=== PATIENT | female | born 1930 | race Caucasian/White ===

== ENCOUNTER 2018-01-11 09:09 | Observation (INO) ==
[2018-01-11] MEDS ORDERED: ONDANSETRON 4 MG/2 ML VIAL IV PRN (10:46)
[2018-01-11 11:13] LABS: Basophils # 0.1 10*3/uL (0.0-0.2); Basophils % 0.5 % (0.0-0.8); Eosinophils % 0.1 % (0.00-10.9); Hematocrit 36.4 VOL% (35.7-47.0); Hemoglobin 11.5 GM/DL (12.0-16.0); Immature Granulocytes % 1.2 %; Immature Granulocytes Absolute 0.16 #; Lymphocytes # 0.8 10*3/uL (1.4-4.0); Lymphocytes % 5.9 % (21.3-54.2); Mean Corpuscular HGB Conc 31.6 GM/DL (32-36); Mean Corpuscular Hemoglobin 31 PG (27-34); Mean Corpuscular Volume 97.8 FL (87-102); Mean Platelet Volume 9.1 FL (9.6-12.0); Monocytes # 0.7 10*3/uL (0.11-0.8); Monocytes % 5.1 % (1.7-12.7); Neutrophils # 11.5 10*3/uL (1.4-7.4); Neutrophils % 87.2 % (38.7-73.9); Platelet Count 314 T/CUMM (130-400); Red Blood Count 3.72 MC/CUMM (3.8-5.5); White Blood Count 13.2 T/CUMM (4-12)
[2018-01-11 11:35] LABS: Calcium 8.5 MG/DL (8.5-10.1); Osmolality,Calculated 275.5 MOS/KG (273-304); Potassium 4.3 MMOL/L (3.5-5.1)
[2018-01-11] MEDS: ACETAMINOPHEN 325 MG TABLET PO PRN ×2 (11:37→21:28)
[2018-01-11] MEDS: ATENOLOL 50 MG TABLET PO SCH (13:25)
[2018-01-11] MEDS: COLESTIPOL 1 GM TABLET PO SCH ×2 (16:34→20:16)
[2018-01-11] MEDS: FLUCONAZOLE 150 MG TABLET PO SCH (20:15)
[2018-01-11] MEDS: NYSTATIN POWDER 15 GM BOTTLE TOP SCH (20:15)
[2018-01-11] MEDS: AMIODARONE 200 MG TABLET PO SCH (20:16)
[2018-01-11] MEDS: sulfaSALAzine 500 MG TABLET PO SCH (20:16)
[2018-01-11] MEDS: LISINOPRIL 10 MG TABLET PO SCH (20:16)
[2018-01-11] MEDS: DOCUSATE SODIUM 100 MG CAPSULE PO SCH (20:17)
[2018-01-12 06:28] LABS: Basophils # 0.1 10*3/uL (0.0-0.2); Basophils % 0.6 % (0.0-0.8); Eosinophils % 0.3 % (0.00-10.9); Hematocrit 33.7 VOL% (35.7-47.0); Hemoglobin 10.6 GM/DL (12.0-16.0); Immature Granulocytes % 1.3 %; Immature Granulocytes Absolute 0.12 #; Lymphocytes # 0.9 10*3/uL (1.4-4.0); Lymphocytes % 10.4 % (21.3-54.2); Mean Corpuscular HGB Conc 31.5 GM/DL (32-36); Mean Corpuscular Hemoglobin 31 PG (27-34); Mean Corpuscular Volume 99.1 FL (87-102); Mean Platelet Volume 9.6 FL (9.6-12.0); Monocytes # 0.6 10*3/uL (0.11-0.8); Monocytes % 6.9 % (1.7-12.7); Neutrophils # 7.3 10*3/uL (1.4-7.4); Neutrophils % 80.5 % (38.7-73.9); Platelet Count 316 T/CUMM (130-400); Red Cell Distribution Width 15.4 % (9.3-17.3)
[2018-01-12 06:52] LABS: Calcium 8.6 MG/DL (8.5-10.1); Osmolality,Calculated 274.7 MOS/KG (273-304); Potassium 3.7 MMOL/L (3.5-5.1)
[2018-01-12] MEDS: COLESTIPOL 1 GM TABLET PO SCH ×2 (08:53→08:55)
[2018-01-12] MEDS: LISINOPRIL 10 MG TABLET PO SCH (08:53)
[2018-01-12] MEDS: FLUCONAZOLE 150 MG TABLET PO SCH (08:54)
[2018-01-12] MEDS: AMIODARONE 200 MG TABLET PO SCH (08:55)
[2018-01-12] MEDS: ATENOLOL 50 MG TABLET PO SCH (08:55)
[2018-01-12] MEDS: sulfaSALAzine 500 MG TABLET PO SCH (08:55)
[2018-01-12] MEDS: DOCUSATE SODIUM 100 MG CAPSULE PO SCH (08:55)
[2018-01-12] MEDS: NYSTATIN POWDER 15 GM BOTTLE TOP SCH (08:55)
[2018-01-12] MEDS ORDERED: ASPIRIN CHEW 81 MG TABLET PO SCH (09:00)
[2018-01-12] MEDS ORDERED: FUROSEMIDE 20 MG TABLET PO SCH (09:00)
[2018-01-12] MEDS ORDERED: POTASSIUM CHLORIDE 20 MEQ TABLET PO SCH (09:00)
[2018-01-12] MEDS ORDERED: ATORVASTATIN 40 MG TABLET PO SCH (09:00)
[2018-01-12] MEDS ORDERED: PANTOPRAZOLE 40 MG TABLET PO SCH (09:00)
[2018-01-12 09:34] VITALS: BP 132/69
[2018-01-12] MEDS ORDERED: traMADol 50 MG TABLET PO ONE (11:57)
== END 2018-01-12 13:39 | disposition home health service (06) ==
LOC: EDUNIT# → N.ED 09:09 → N.EDINP 09:09 → N.2W 11:21 → N.5E 13:27
PROVIDERS: ADMIT Family Medicine; ATTEND Family Medicine

== ENCOUNTER 2020-03-13 10:53 | Inpatient (IN) ==
[2020-03-13] MEDS ORDERED: ONDANSETRON 4 MG/2 ML VIAL IM STA (11:45)
[2020-03-13] MEDS ORDERED: MORPHINE 4 MG/1 ML VIAL IM STA (11:45)
[2020-03-13] MEDS ORDERED: HYDROmorphone 2 MG/1 ML VIAL IV STA ×2 (13:23→13:26)
[2020-03-13 14:12] LABS: Basophils % 0.4 % (0.0-0.8); Eosinophils % 0.1 % (0.00-10.9); Hematocrit 36.1 VOL% (35.7-47.0); Hemoglobin 11.1 GM/DL (12.0-16.0); Immature Granulocytes % 1.7 %; Immature Granulocytes Absolute 0.19 #; Lymphocytes # 0.8 10*3/uL (1.4-4.0); Lymphocytes % 6.8 % (21.3-54.2); Mean Corpuscular HGB Conc 30.7 GM/DL (32-36); Mean Corpuscular Volume 102.3 FL (87-102); Mean Platelet Volume 9.3 FL (9.6-12.0); Monocytes % 5.6 % (1.7-12.7); Neutrophils % 85.4 % (38.7-73.9); Platelet Count 497 T/CUMM (130-400); Red Blood Count 3.53 MC/CUMM (3.8-5.5); Red Cell Distribution Width 17.5 % (9.3-17.3); White Blood Count 11.1 T/CUMM (4-12)
[2020-03-13 14:37] LABS: Albumin 2.6 G/DL (3.4-5.0); Bilirubin,Total 0.4 MG/DL (0.2-1.0); Calcium 9.1 MG/DL (8.5-10.1); Osmolality,Calculated 287.4 MOS/KG (273-304); Potassium 3.3 MMOL/L (3.5-5.1); Total Protein 7.2 G/DL (6.4-8.3)
[2020-03-13] MEDS ORDERED: SODIUM CHLORIDE 0.9% 1,000 ML IV STA (14:41)
[2020-03-13] MEDS ORDERED: DEXTROSE 50% 25 GM/50 ML VIAL IV PRN (15:51)
[2020-03-13] MEDS ORDERED: GLUCAGON 1 MG VIAL IM PRN (15:51)
[2020-03-13 15:52] LABS: Bacteria,Urine Occasional /HPF (Few); Bilirubin,Urine Negative (Negative); Blood, Urine Negative (Negative); Glucose,Urine (UA) Negative (Negative); Hyaline Casts,Urine 25 /LPF (0-3); Ketones,Urine Negative (Negative); Mucus,Urine Occasional /LPF (Occasional); Nitrite,Urine Negative (Negative); Protein,Urine Negative; Urine Appearance Slightly Hazy (Clear); Urine Color Yellow (Yellow); Urine Specific Gravity 1.023 (1.001-1.035); Urine Urobilinogen < 2.0 EU/DL (0.2-1.0); WBC,Urine 63 /HPF (0-6)
[2020-03-13] MEDS ORDERED: SODIUM CHLORIDE 0.9% 1,000 ML IV SCH (16:00)
[2020-03-13] MEDS: HYDROmorphone 2 MG/1 ML VIAL IV PRN (18:49)
[2020-03-14] MEDS: HYDROmorphone 2 MG/1 ML VIAL IV PRN ×6 (00:59→22:55)
[2020-03-14 05:26] LABS: PT Patient Result 10.8 SECS (9.8-11.9)
[2020-03-14 05:44] LABS: Bilirubin,Total 0.8 MG/DL (0.2-1.0); Calcium 8.2 MG/DL (8.5-10.1); Osmolality,Calculated 288.1 MOS/KG (273-304); Potassium 3.2 MMOL/L (3.5-5.1); Total Protein 5.6 G/DL (6.4-8.3)
[2020-03-14 07:10] LABS: Basophils % 0.3 % (0.0-0.8); Eosinophils % 0.3 % (0.00-10.9); Hematocrit 30.5 VOL% (35.7-47.0); Hemoglobin 9.2 GM/DL (12.0-16.0); Immature Granulocytes % 1.7 %; Immature Granulocytes Absolute 0.15 #; Lymphocytes # 1.1 10*3/uL (1.4-4.0); Lymphocytes % 11.9 % (21.3-54.2); Mean Corpuscular HGB Conc 30.2 GM/DL (32-36); Mean Corpuscular Volume 104.5 FL (87-102); Mean Platelet Volume 9.2 FL (9.6-12.0); Monocytes % 7.3 % (1.7-12.7); Neutrophils % 78.5 % (38.7-73.9); Platelet Count 408 T/CUMM (130-400); Red Blood Count 2.92 MC/CUMM (3.8-5.5); Red Cell Distribution Width 17.5 % (9.3-17.3); White Blood Count 9.1 T/CUMM (4-12)
[2020-03-14] MEDS ORDERED: PANTOPRAZOLE 40 MG TABLET PO SCH (09:00)
[2020-03-14] MEDS ORDERED: POTASSIUM CHLORIDE 20 MEQ TABLET PO ONE (11:00)
[2020-03-14] MEDS ORDERED: ROPIVACAINE 0.5% 30 ML VIAL ONE (12:57)
[2020-03-14] MEDS ORDERED: LIDOCAINE 2% 5 ML VIAL ONE ×3 (12:57→13:06)
[2020-03-14] MEDS ORDERED: BUPIVACAINE 0.5% 50 ML VIAL ONE (12:58)
[2020-03-14] MEDS ORDERED: propofoL 200 MG/20 ML VIAL IV ONE (13:06)
[2020-03-14] MEDS ORDERED: fentaNYL 100 MCG/2 ML VIAL ONE (13:27)
[2020-03-14] MEDS ORDERED: PHENYLEPHRINE 1 MG/10 ML SYRINGE IV ONE (13:51)
[2020-03-14] MEDS ORDERED: TISSUE ADHESIVE 1 EACH APPLICATOR TOP ONE (13:55)
[2020-03-14] MEDS ORDERED: HYDROmorphone 2 MG/1 ML VIAL IV ONE (14:20)
[2020-03-14] MEDS: ONDANSETRON 4 MG/2 ML VIAL IV PRN (14:24)
[2020-03-14] MEDS: FUROSEMIDE 40 MG TABLET PO SCH (18:18)
[2020-03-14] MEDS: PANTOPRAZOLE 40 MG TABLET PO SCH (18:40)
[2020-03-14] MEDS: AMIODARONE 200 MG TABLET PO SCH (18:40)
[2020-03-14] MEDS ORDERED: lisinopriL 10 MG TABLET PO SCH (21:00)
[2020-03-14] MEDS: sulfaSALAzine 500 MG TABLET PO SCH (21:03)
[2020-03-15] MEDS ORDERED: POLYETHYLENE GLYCOL POWDER 17 GM PACK PO PRN (01:20)
[2020-03-15] MEDS: HYDROmorphone 2 MG/1 ML VIAL IV PRN ×5 (01:55→20:12)
[2020-03-15] MEDS: PANTOPRAZOLE 40 MG TABLET PO SCH ×2 (05:55→17:43)
[2020-03-15 07:40] LABS: Basophils # 0.1 10*3/uL (0.0-0.2); Basophils % 0.5 % (0.0-0.8); Eosinophils % 0.3 % (0.00-10.9); Hematocrit 33.9 VOL% (35.7-47.0); Hemoglobin 10.1 GM/DL (12.0-16.0); Immature Granulocytes % 2.9 %; Immature Granulocytes Absolute 0.32 #; Lymphocytes # 0.8 10*3/uL (1.4-4.0); Lymphocytes % 6.8 % (21.3-54.2); Mean Corpuscular HGB Conc 29.8 GM/DL (32-36); Mean Corpuscular Volume 107.3 FL (87-102); Mean Platelet Volume 9.2 FL (9.6-12.0); Monocytes % 7.1 % (1.7-12.7); Neutrophils % 82.4 % (38.7-73.9); Platelet Count 393 T/CUMM (130-400); Red Blood Count 3.16 MC/CUMM (3.8-5.5); Red Cell Distribution Width 17.3 % (9.3-17.3); White Blood Count 11.1 T/CUMM (4-12)
[2020-03-15 08:34] LABS: Calcium 8.4 MG/DL (8.5-10.1); Osmolality,Calculated 283.5 MOS/KG (273-304); Potassium 3.6 MMOL/L (3.5-5.1)
[2020-03-15] MEDS: atenoloL 50 MG TABLET PO SCH (09:30)
[2020-03-15] MEDS: MULTIVITAMIN (OCUVITE) TABLET PO SCH (09:31)
[2020-03-15] MEDS: FERROUS SULFATE 325 MG TABLET PO SCH (09:31)
[2020-03-15] MEDS: ASPIRIN CHEW 81 MG TABLET PO SCH (09:31)
[2020-03-15] MEDS: ATORVASTATIN 40 MG TABLET PO SCH (09:31)
[2020-03-15] MEDS: CALCIUM (CARBONATE)/VITAMIN D 500 MG-200 UNIT TABLET PO SCH (09:31)
[2020-03-15] MEDS: FUROSEMIDE 40 MG TABLET PO SCH ×2 (09:31→16:09)
[2020-03-15] MEDS: AMIODARONE 200 MG TABLET PO SCH (09:31)
[2020-03-15] MEDS: lisinopriL 10 MG TABLET PO SCH ×2 (09:31→20:45)
[2020-03-15] MEDS: CHLORTHALIDONE 25 MG TABLET PO SCH (09:31)
[2020-03-15] MEDS: CHOLECALCIFEROL 1,000 UNIT TABLET PO SCH (09:31)
[2020-03-15] MEDS: DOCUSATE SODIUM 100 MG CAPSULE PO PRN (09:32)
[2020-03-15] MEDS: POTASSIUM CHLORIDE 10 MEQ TABLET PO SCH (09:32)
[2020-03-15] MEDS: sulfaSALAzine 500 MG TABLET PO SCH ×2 (09:36→20:45)
[2020-03-15] MEDS: ASCORBIC ACID 500 MG TABLET PO SCH (09:48)
[2020-03-15] MEDS: MESALAMINE PO SCH (14:19)
[2020-03-15] MEDS: fentaNYL 25 MCG/HR PATCH TRANSDERM SCH (15:18)
[2020-03-15] MEDS: POTASSIUM CHLORIDE 20 MEQ TABLET PO PRN ×2 (16:09→17:43)
[2020-03-16] MEDS: HYDROmorphone 2 MG/1 ML VIAL IV PRN ×4 (00:20→20:29)
[2020-03-16] MEDS ORDERED: SODIUM PHOSPHATE ENEMA 133 ML BOTTLE RECTAL ONE ×2 (05:00→12:00)
[2020-03-16] MEDS: PANTOPRAZOLE 40 MG TABLET PO SCH ×2 (05:30→18:07)
[2020-03-16 06:31] LABS: Basophils % 0.3 % (0.0-0.8); Eosinophils % 0.3 % (0.00-10.9); Hematocrit 30.8 VOL% (35.7-47.0); Hemoglobin 9.3 GM/DL (12.0-16.0); Immature Granulocytes % 2.3 %; Immature Granulocytes Absolute 0.27 #; Lymphocytes # 0.9 10*3/uL (1.4-4.0); Lymphocytes % 7.2 % (21.3-54.2); Mean Corpuscular HGB Conc 30.2 GM/DL (32-36); Mean Corpuscular Volume 104.4 FL (87-102); Mean Platelet Volume 9.3 FL (9.6-12.0); Monocytes % 7.5 % (1.7-12.7); Neutrophils % 82.4 % (38.7-73.9); Platelet Count 409 T/CUMM (130-400); Red Blood Count 2.95 MC/CUMM (3.8-5.5); White Blood Count 11.8 T/CUMM (4-12)
[2020-03-16 06:48] LABS: Folate 19.6 NG/ML (5.38-24.0); Vitamin B12 > 2000 PG/ML (211-911)
[2020-03-16 06:55] LABS: Calcium 8.5 MG/DL (8.5-10.1); Osmolality,Calculated 279.1 MOS/KG (273-304); Potassium 4.3 MMOL/L (3.5-5.1)
[2020-03-16] MEDS: sulfaSALAzine 500 MG TABLET PO SCH ×2 (09:05→20:29)
[2020-03-16] MEDS: MULTIVITAMIN (OCUVITE) TABLET PO SCH (09:05)
[2020-03-16] MEDS: CALCIUM (CARBONATE)/VITAMIN D 500 MG-200 UNIT TABLET PO SCH (09:05)
[2020-03-16] MEDS: POTASSIUM CHLORIDE 10 MEQ TABLET PO SCH (09:05)
[2020-03-16] MEDS: DOCUSATE SODIUM 100 MG CAPSULE PO PRN (09:06)
[2020-03-16] MEDS: lisinopriL 10 MG TABLET PO SCH (09:06)
[2020-03-16] MEDS: CHLORTHALIDONE 25 MG TABLET PO SCH (09:06)
[2020-03-16] MEDS: AMIODARONE 200 MG TABLET PO SCH (09:07)
[2020-03-16] MEDS: ATORVASTATIN 40 MG TABLET PO SCH (09:07)
[2020-03-16] MEDS: atenoloL 50 MG TABLET PO SCH (09:07)
[2020-03-16] MEDS: FERROUS SULFATE 325 MG TABLET PO SCH (09:07)
[2020-03-16] MEDS: ASPIRIN CHEW 81 MG TABLET PO SCH (09:07)
[2020-03-16] MEDS: FUROSEMIDE 40 MG TABLET PO SCH (09:07)
[2020-03-16] MEDS: CHOLECALCIFEROL 1,000 UNIT TABLET PO SCH (09:07)
[2020-03-16] MEDS: MESALAMINE PO SCH (09:08)
[2020-03-16] MEDS: ASCORBIC ACID 500 MG TABLET PO SCH (09:08)
[2020-03-16] MEDS ORDERED: MAGNESIUM HYDROXIDE SUSP 30 ML UDCUP PO PRN (13:02)
[2020-03-16] MEDS: cefTRIAXone 1,000 MG in SYRINGE 1 EACH IV SCH (15:02)
[2020-03-16] MEDS: VANCOMYCIN INJ 1,250 MG in SODIUM CHLORIDE 0.9% 250 ML IV SCH (15:15)
[2020-03-17] MEDS: HYDROmorphone 2 MG/1 ML VIAL IV PRN ×4 (00:50→16:29)
[2020-03-17 06:15] LABS: Basophils % 0.4 % (0.0-0.8); Eosinophils # 0.1 10*3/uL (0.0-0.87); Eosinophils % 0.6 % (0.00-10.9); Hematocrit 29.4 VOL% (35.7-47.0); Hemoglobin 9.2 GM/DL (12.0-16.0); Immature Granulocytes % 2.3 %; Immature Granulocytes Absolute 0.23 #; Lymphocytes % 10.5 % (21.3-54.2); Mean Corpuscular HGB Conc 31.3 GM/DL (32-36); Mean Platelet Volume 9.1 FL (9.6-12.0); Monocytes % 9.3 % (1.7-12.7); Neutrophils % 76.9 % (38.7-73.9); Platelet Count 364 T/CUMM (130-400); Red Blood Count 2.91 MC/CUMM (3.8-5.5); Red Cell Distribution Width 16.2 % (9.3-17.3); White Blood Count 9.9 T/CUMM (4-12)
[2020-03-17] MEDS ORDERED: ACETAMINOPHEN 325 MG TABLET PO PRN (06:22)
[2020-03-17 06:34] LABS: Osmolality,Calculated 278.2 MOS/KG (273-304); Potassium 4.1 MMOL/L (3.5-5.1)
[2020-03-17] MEDS: PANTOPRAZOLE 40 MG TABLET PO SCH ×2 (07:14→18:15)
[2020-03-17] MEDS: ASPIRIN CHEW 81 MG TABLET PO SCH (09:35)
[2020-03-17] MEDS: sulfaSALAzine 500 MG TABLET PO SCH ×2 (09:35→20:23)
[2020-03-17] MEDS: CALCIUM (CARBONATE)/VITAMIN D 500 MG-200 UNIT TABLET PO SCH (09:35)
[2020-03-17] MEDS: CHLORTHALIDONE 25 MG TABLET PO SCH (09:36)
[2020-03-17] MEDS: CHOLECALCIFEROL 1,000 UNIT TABLET PO SCH (09:36)
[2020-03-17] MEDS: atenoloL 50 MG TABLET PO SCH (09:36)
[2020-03-17] MEDS: ASCORBIC ACID 500 MG TABLET PO SCH (09:36)
[2020-03-17] MEDS: FERROUS SULFATE 325 MG TABLET PO SCH (09:36)
[2020-03-17] MEDS: POTASSIUM CHLORIDE 10 MEQ TABLET PO SCH (09:36)
[2020-03-17] MEDS: MESALAMINE PO SCH (09:36)
[2020-03-17] MEDS: ATORVASTATIN 40 MG TABLET PO SCH (09:36)
[2020-03-17] MEDS: AMIODARONE 200 MG TABLET PO SCH (09:36)
[2020-03-17] MEDS: FUROSEMIDE 20 MG TABLET PO SCH (09:36)
[2020-03-17] MEDS: MULTIVITAMIN (OCUVITE) TABLET PO SCH (09:36)
[2020-03-17] MEDS: cefTRIAXone 1,000 MG in SYRINGE 1 EACH IV SCH (16:29)
[2020-03-18] MEDS: HYDROmorphone 2 MG/1 ML VIAL IV PRN ×3 (01:37→15:49)
[2020-03-18] MEDS: VANCOMYCIN INJ 1,250 MG in SODIUM CHLORIDE 0.9% 250 ML IV SCH (03:14)
[2020-03-18] MEDS: PANTOPRAZOLE 40 MG TABLET PO SCH ×2 (05:32→17:42)
[2020-03-18] MEDS: CHOLECALCIFEROL 1,000 UNIT TABLET PO SCH (09:12)
[2020-03-18] MEDS: sulfaSALAzine 500 MG TABLET PO SCH ×2 (09:13→21:23)
[2020-03-18] MEDS: CHLORTHALIDONE 25 MG TABLET PO SCH (09:13)
[2020-03-18] MEDS: FERROUS SULFATE 325 MG TABLET PO SCH (09:13)
[2020-03-18] MEDS: ATORVASTATIN 40 MG TABLET PO SCH (09:13)
[2020-03-18] MEDS: AMIODARONE 200 MG TABLET PO SCH (09:13)
[2020-03-18] MEDS: CALCIUM (CARBONATE)/VITAMIN D 500 MG-200 UNIT TABLET PO SCH (09:13)
[2020-03-18] MEDS: FUROSEMIDE 20 MG TABLET PO SCH (09:13)
[2020-03-18] MEDS: MULTIVITAMIN (OCUVITE) TABLET PO SCH (09:13)
[2020-03-18] MEDS: ASPIRIN CHEW 81 MG TABLET PO SCH (09:13)
[2020-03-18] MEDS: ASCORBIC ACID 500 MG TABLET PO SCH (09:13)
[2020-03-18] MEDS: POTASSIUM CHLORIDE 10 MEQ TABLET PO SCH (09:13)
[2020-03-18] MEDS: fentaNYL 25 MCG/HR PATCH TRANSDERM SCH (09:14)
[2020-03-18] MEDS: MESALAMINE PO SCH (09:14)
[2020-03-18] MEDS: atenoloL 50 MG TABLET PO SCH (09:17)
[2020-03-18] MEDS: cefTRIAXone 2,000 MG in SYRINGE 1 EACH IV SCH (15:49)
[2020-03-19] MEDS: HYDROmorphone 2 MG/1 ML VIAL IV PRN ×3 (03:31→19:18)
[2020-03-19] MEDS: PANTOPRAZOLE 40 MG TABLET PO SCH ×2 (05:45→17:52)
[2020-03-19] MEDS: AMIODARONE 200 MG TABLET PO SCH (08:47)
[2020-03-19] MEDS: sulfaSALAzine 500 MG TABLET PO SCH ×2 (08:47→20:49)
[2020-03-19] MEDS: MULTIVITAMIN (OCUVITE) TABLET PO SCH (08:47)
[2020-03-19] MEDS: ASPIRIN CHEW 81 MG TABLET PO SCH (08:47)
[2020-03-19] MEDS: atenoloL 50 MG TABLET PO SCH (08:47)
[2020-03-19] MEDS: CHOLECALCIFEROL 1,000 UNIT TABLET PO SCH (08:47)
[2020-03-19] MEDS: ATORVASTATIN 40 MG TABLET PO SCH (08:47)
[2020-03-19] MEDS: POTASSIUM CHLORIDE 10 MEQ TABLET PO SCH (08:47)
[2020-03-19] MEDS: ASCORBIC ACID 500 MG TABLET PO SCH (08:47)
[2020-03-19] MEDS: FERROUS SULFATE 325 MG TABLET PO SCH (08:48)
[2020-03-19] MEDS: FUROSEMIDE 20 MG TABLET PO SCH (08:48)
[2020-03-19] MEDS: CALCIUM (CARBONATE)/VITAMIN D 500 MG-200 UNIT TABLET PO SCH (08:48)
[2020-03-19] MEDS: cefTRIAXone 2,000 MG in SYRINGE 1 EACH IV SCH (08:49)
[2020-03-19] MEDS: MESALAMINE PO SCH (08:50)
[2020-03-19] MEDS: CHLORTHALIDONE 25 MG TABLET PO SCH (08:50)
[2020-03-20] MEDS: HYDROmorphone 2 MG/1 ML VIAL IV PRN ×4 (00:40→18:04)
[2020-03-20] MEDS: PANTOPRAZOLE 40 MG TABLET PO SCH ×2 (05:30→17:44)
[2020-03-20] MEDS: FERROUS SULFATE 325 MG TABLET PO SCH (08:31)
[2020-03-20] MEDS: sulfaSALAzine 500 MG TABLET PO SCH ×2 (08:31→21:21)
[2020-03-20] MEDS: AMIODARONE 200 MG TABLET PO SCH (08:31)
[2020-03-20] MEDS: MULTIVITAMIN (OCUVITE) TABLET PO SCH (08:31)
[2020-03-20] MEDS: ATORVASTATIN 40 MG TABLET PO SCH (08:31)
[2020-03-20] MEDS: CHOLECALCIFEROL 1,000 UNIT TABLET PO SCH (08:31)
[2020-03-20] MEDS: CHLORTHALIDONE 25 MG TABLET PO SCH (08:31)
[2020-03-20] MEDS: CALCIUM (CARBONATE)/VITAMIN D 500 MG-200 UNIT TABLET PO SCH (08:31)
[2020-03-20] MEDS: ASPIRIN CHEW 81 MG TABLET PO SCH (08:31)
[2020-03-20] MEDS: atenoloL 50 MG TABLET PO SCH (08:31)
[2020-03-20] MEDS: POTASSIUM CHLORIDE 10 MEQ TABLET PO SCH (08:31)
[2020-03-20] MEDS: FUROSEMIDE 20 MG TABLET PO SCH (08:31)
[2020-03-20] MEDS: cefTRIAXone 2,000 MG in SYRINGE 1 EACH IV SCH (08:32)
[2020-03-20] MEDS: MESALAMINE PO SCH (08:32)
[2020-03-20] MEDS: ASCORBIC ACID 500 MG TABLET PO SCH (08:44)
[2020-03-21] MEDS: HYDROmorphone 2 MG/1 ML VIAL IV PRN (02:10)
[2020-03-21] MEDS: PANTOPRAZOLE 40 MG TABLET PO SCH ×2 (05:34→17:48)
[2020-03-21] MEDS: CALCIUM (CARBONATE)/VITAMIN D 500 MG-200 UNIT TABLET PO SCH (09:31)
[2020-03-21] MEDS: CHOLECALCIFEROL 1,000 UNIT TABLET PO SCH (09:31)
[2020-03-21] MEDS: FUROSEMIDE 20 MG TABLET PO SCH (09:31)
[2020-03-21] MEDS: POTASSIUM CHLORIDE 10 MEQ TABLET PO SCH (09:31)
[2020-03-21] MEDS: ASPIRIN CHEW 81 MG TABLET PO SCH (09:31)
[2020-03-21] MEDS: CHLORTHALIDONE 25 MG TABLET PO SCH (09:32)
[2020-03-21] MEDS: ASCORBIC ACID 500 MG TABLET PO SCH (09:32)
[2020-03-21] MEDS: AMIODARONE 200 MG TABLET PO SCH (09:32)
[2020-03-21] MEDS: ATORVASTATIN 40 MG TABLET PO SCH (09:32)
[2020-03-21] MEDS: sulfaSALAzine 500 MG TABLET PO SCH ×2 (09:32→21:45)
[2020-03-21] MEDS: atenoloL 50 MG TABLET PO SCH (09:32)
[2020-03-21] MEDS: MULTIVITAMIN (OCUVITE) TABLET PO SCH (09:33)
[2020-03-21] MEDS: FERROUS SULFATE 325 MG TABLET PO SCH (09:33)
[2020-03-21] MEDS: cefTRIAXone 2,000 MG in SYRINGE 1 EACH IV SCH (09:33)
[2020-03-21] MEDS: DOCUSATE SODIUM 100 MG CAPSULE PO PRN (09:33)
[2020-03-21] MEDS: POLYETHYLENE GLYCOL POWDER 17 GM PACK PO SCH (09:34)
[2020-03-21] MEDS: fentaNYL 25 MCG/HR PATCH TRANSDERM SCH (09:34)
[2020-03-21] MEDS: MESALAMINE PO SCH (09:38)
[2020-03-22] MEDS: ONDANSETRON 4 MG/2 ML VIAL IV PRN (02:05)
[2020-03-22] MEDS: POTASSIUM CHLORIDE 10 MEQ TABLET PO SCH (08:09)
[2020-03-22] MEDS: ASCORBIC ACID 500 MG TABLET PO SCH (08:09)
[2020-03-22] MEDS: sulfaSALAzine 500 MG TABLET PO SCH ×2 (08:09→21:04)
[2020-03-22] MEDS: CHOLECALCIFEROL 1,000 UNIT TABLET PO SCH (08:09)
[2020-03-22] MEDS: PANTOPRAZOLE 40 MG TABLET PO SCH ×2 (08:09→17:50)
[2020-03-22] MEDS: AMIODARONE 200 MG TABLET PO SCH (08:09)
[2020-03-22] MEDS: atenoloL 50 MG TABLET PO SCH (08:10)
[2020-03-22] MEDS: ASPIRIN CHEW 81 MG TABLET PO SCH (08:10)
[2020-03-22] MEDS: FERROUS SULFATE 325 MG TABLET PO SCH (08:10)
[2020-03-22] MEDS: ATORVASTATIN 40 MG TABLET PO SCH (08:10)
[2020-03-22] MEDS: CALCIUM (CARBONATE)/VITAMIN D 500 MG-200 UNIT TABLET PO SCH (08:10)
[2020-03-22] MEDS: DOCUSATE SODIUM 100 MG CAPSULE PO PRN (08:10)
[2020-03-22] MEDS: MULTIVITAMIN (OCUVITE) TABLET PO SCH (08:10)
[2020-03-22] MEDS: POLYETHYLENE GLYCOL POWDER 17 GM PACK PO SCH (08:10)
[2020-03-22] MEDS: cefTRIAXone 2,000 MG in SYRINGE 1 EACH IV SCH (08:10)
[2020-03-22] MEDS: FUROSEMIDE 20 MG TABLET PO SCH (08:12)
[2020-03-22] MEDS: CHLORTHALIDONE 25 MG TABLET PO SCH (08:13)
[2020-03-22 09:43] LABS: Basophils # 0.1 10*3/uL (0.0-0.2); Basophils % 0.5 % (0.0-0.8); Eosinophils # 0.1 10*3/uL (0.0-0.87); Eosinophils % 0.7 % (0.00-10.9); Hematocrit 31.2 VOL% (35.7-47.0); Hemoglobin 9.5 GM/DL (12.0-16.0); Immature Granulocytes % 5.5 %; Immature Granulocytes Absolute 0.57 #; Lymphocytes # 1.6 10*3/uL (1.4-4.0); Lymphocytes % 15.4 % (21.3-54.2); Mean Corpuscular HGB Conc 30.4 GM/DL (32-36); Mean Corpuscular Volume 100.3 FL (87-102); Mean Platelet Volume 8.9 FL (9.6-12.0); Monocytes % 7.5 % (1.7-12.7); Neutrophils % 70.4 % (38.7-73.9); Platelet Count 403 T/CUMM (130-400); Red Blood Count 3.11 MC/CUMM (3.8-5.5); Red Cell Distribution Width 15.7 % (9.3-17.3); White Blood Count 10.3 T/CUMM (4-12)
[2020-03-22 10:04] LABS: Eosinophils 1 % (0-10); Hypochromasia 1+; Lymphocytes 11 % (20-55); Microcytosis 1+; Platelet Estimate Adequate; Segmented Neutrophils 84 % (50-85); Total Cells Counted 100
[2020-03-22 10:35] LABS: Calcium 7.1 MG/DL (8.5-10.1); Osmolality,Calculated 273.5 MOS/KG (273-304); Potassium 4.8 MMOL/L (3.5-5.1)
[2020-03-22] MEDS: MESALAMINE PO SCH (11:34)
[2020-03-22] MEDS ORDERED: BISACODYL 5 MG TABLET PO PRN (11:49)
[2020-03-22] MEDS: SODIUM CHLORIDE 0.9% 1,000 ML IV SCH ×2 (12:20→21:03)
[2020-03-23] MEDS: PANTOPRAZOLE 40 MG TABLET PO SCH ×2 (06:02→17:36)
[2020-03-23 07:04] LABS: Osmolality,Calculated 281.7 MOS/KG (273-304); Potassium 3.3 MMOL/L (3.5-5.1)
[2020-03-23] MEDS: POTASSIUM CHLORIDE 10 MEQ TABLET PO SCH (08:30)
[2020-03-23] MEDS: DOCUSATE SODIUM 100 MG CAPSULE PO PRN (08:30)
[2020-03-23] MEDS: CHLORTHALIDONE 25 MG TABLET PO SCH (08:30)
[2020-03-23] MEDS: POTASSIUM CHLORIDE 20 MEQ TABLET PO PRN (08:30)
[2020-03-23] MEDS: CHOLECALCIFEROL 1,000 UNIT TABLET PO SCH (08:30)
[2020-03-23] MEDS: CALCIUM (CARBONATE)/VITAMIN D 500 MG-200 UNIT TABLET PO SCH (08:30)
[2020-03-23] MEDS: MULTIVITAMIN (OCUVITE) TABLET PO SCH (08:31)
[2020-03-23] MEDS: ASPIRIN CHEW 81 MG TABLET PO SCH (08:31)
[2020-03-23] MEDS: ASCORBIC ACID 500 MG TABLET PO SCH (08:31)
[2020-03-23] MEDS: FUROSEMIDE 20 MG TABLET PO SCH (08:31)
[2020-03-23] MEDS: AMIODARONE 200 MG TABLET PO SCH (08:31)
[2020-03-23] MEDS: ATORVASTATIN 40 MG TABLET PO SCH (08:31)
[2020-03-23] MEDS: atenoloL 50 MG TABLET PO SCH (08:31)
[2020-03-23] MEDS: sulfaSALAzine 500 MG TABLET PO SCH ×2 (08:31→21:26)
[2020-03-23] MEDS: FERROUS SULFATE 325 MG TABLET PO SCH (08:31)
[2020-03-23] MEDS: cefTRIAXone 2,000 MG in SYRINGE 1 EACH IV SCH (08:32)
[2020-03-23] MEDS: SODIUM CHLORIDE 0.9% 1,000 ML IV SCH ×3 (08:32→21:30)
[2020-03-23] MEDS: POLYETHYLENE GLYCOL POWDER 17 GM PACK PO SCH (08:32)
[2020-03-23] MEDS: HYDROmorphone 2 MG/1 ML VIAL IV PRN ×2 (11:05→23:07)
[2020-03-23] MEDS: MESALAMINE PO SCH (11:06)
[2020-03-24] MEDS: SODIUM CHLORIDE 0.9% 1,000 ML IV SCH (05:53)
[2020-03-24] MEDS: PANTOPRAZOLE 40 MG TABLET PO SCH (06:02)
[2020-03-24] MEDS: atenoloL 50 MG TABLET PO SCH (08:46)
[2020-03-24] MEDS: ATORVASTATIN 40 MG TABLET PO SCH (08:46)
[2020-03-24] MEDS: sulfaSALAzine 500 MG TABLET PO SCH (08:46)
[2020-03-24] MEDS: CHOLECALCIFEROL 1,000 UNIT TABLET PO SCH (08:47)
[2020-03-24] MEDS: CALCIUM (CARBONATE)/VITAMIN D 500 MG-200 UNIT TABLET PO SCH (08:47)
[2020-03-24] MEDS: POTASSIUM CHLORIDE 10 MEQ TABLET PO SCH (08:48)
[2020-03-24] MEDS: AMIODARONE 200 MG TABLET PO SCH (08:49)
[2020-03-24] MEDS: FUROSEMIDE 20 MG TABLET PO SCH (08:49)
[2020-03-24] MEDS: ASCORBIC ACID 500 MG TABLET PO SCH (08:49)
[2020-03-24] MEDS: ASPIRIN CHEW 81 MG TABLET PO SCH (08:50)
[2020-03-24] MEDS: FERROUS SULFATE 325 MG TABLET PO SCH (08:52)
[2020-03-24] MEDS: MESALAMINE PO SCH (08:53)
[2020-03-24] MEDS: MULTIVITAMIN (OCUVITE) TABLET PO SCH (08:54)
[2020-03-24] MEDS: cefTRIAXone 2,000 MG in SYRINGE 1 EACH IV SCH (08:54)
[2020-03-24] MEDS: CHLORTHALIDONE 25 MG TABLET PO SCH (08:56)
[2020-03-24] MEDS: POLYETHYLENE GLYCOL POWDER 17 GM PACK PO SCH (08:56)
[2020-03-24] MEDS: ONDANSETRON 4 MG/2 ML VIAL IV PRN (08:57)
[2020-03-24 09:10] LABS: Calcium 7.8 MG/DL (8.5-10.1); Osmolality,Calculated 276.7 MOS/KG (273-304); Potassium 3.6 MMOL/L (3.5-5.1)
[2020-03-24 12:01] VITALS: BP 101/46
[2020-03-24] MEDS ORDERED: DESITIN 4OZ/NYSTATIN 15 GRAM MIXTURE PASTE TOP SCH (15:00)
== END 2020-03-24 15:20 | disposition swing bed (61) | DRG 478 ==
LOC: N.ED 10:53 → N.EDINP 10:53 → N.5E 18:10 → SUATTDRO 03-15 12:42
PROVIDERS: ADMIT Family Medicine; ATTEND Internal Medicine

== ENCOUNTER 2020-04-27 01:00 | Inpatient (IN) ==
[2020-04-27 01:54] LABS: Basophils # 0.1 10*3/uL (0.0-0.2); Basophils % 0.5 % (0.0-0.8); Eosinophils # 0.1 10*3/uL (0.0-0.87); Hematocrit 29.5 VOL% (35.7-47.0); Hemoglobin 8.7 GM/DL (12.0-16.0); Immature Granulocytes % 4.6 %; Immature Granulocytes Absolute 0.42 #; Lymphocytes % 10.6 % (21.3-54.2); Mean Corpuscular HGB Conc 29.5 GM/DL (32-36); Mean Platelet Volume 9.4 FL (9.6-12.0); Monocytes % 6.7 % (1.7-12.7); NRBC # 0.02 10*3/uL; Neutrophils % 76.6 % (38.7-73.9); Platelet Count 390 T/CUMM (130-400); Red Blood Count 3.04 MC/CUMM (3.8-5.5); White Blood Count 9.1 T/CUMM (4-12)
[2020-04-27 03:14] LABS: Alanine Aminotransferase 66 U/L (13-56); Albumin 1.5 G/DL (3.4-5.0); Alkaline Phosphatase 277 U/L (45-117); Aspartate Amino Transferase 88 U/L (0-37); Bilirubin,Total < 0.39 MG/DL (0.2-1.0); Blood Urea Nitrogen 18 MG/DL (7-18); Calcium 7.9 MG/DL (8.5-10.1); Carbon Dioxide 32 MMOL/L (21-32); Estimated Glom Filtration Rate 94 ML/MIN; Glucose 111 MG/DL (74-106); Osmolality,Calculated 283.3 MOS/KG (273-304); Sodium 141 MMOL/L (136-145); Total Protein 5.2 G/DL (5.0-7.5)
[2020-04-27] MEDS ORDERED: PANTOPRAZOLE INJ 80 MG in SODIUM CHLORIDE 0.9% 100 ML IV ONE (03:54)
[2020-04-27] MEDS ORDERED: SODIUM CHLORIDE 0.9% 1,000 ML IV PRN (04:20)
[2020-04-27] MEDS ORDERED: ONDANSETRON 4 MG/2 ML VIAL IV PRN (04:20)
[2020-04-27] MEDS ORDERED: DEXTROSE 50% 25 GM/50 ML VIAL IV PRN (04:20)
[2020-04-27] MEDS ORDERED: PANTOPRAZOLE 40 MG VIAL IV ONE ×2 (04:21→04:23)
[2020-04-27 05:02] LABS: INR 1.1; PT Patient Result 11.5 SECS (9.8-11.9)
[2020-04-27] MEDS: POTASSIUM CHLORIDE 20 MEQ TABLET PO PRN ×4 (08:20→21:24)
[2020-04-27] MEDS: PANTOPRAZOLE INJ 200 MG in SODIUM CHLORIDE 0.9% 250 ML IV SCH (08:20)
[2020-04-27 10:38] LABS: Hematocrit 28.4 VOL% (35.7-47.0); Hemoglobin 8.3 GM/DL (12.0-16.0)
[2020-04-27 11:07] LABS: Potassium 3.3 MMOL/L (3.5-5.1)
[2020-04-27 11:15] LABS: % Iron Saturation 11.4 % (18-50); Ferritin 71.8 ng/ml (8-252); Folate 13.1 NG/ML (5.38-24.0)
[2020-04-27 12:05] LABS: Hepatitis B Core IgM Quant < 0.05 Index; Hepatitis B Surface Ag Quant < 0.10 Index; Hepatitis B Surface Ag Result Non-Reactive (NonReactive); Hepatitis C Virus Ab Quant 0.06 Index; Hepatitis C Virus Ab Result Non-Reactive (NonReactive)
[2020-04-27] MEDS: FERRIC GLUCONATE COMPLEX 125 MG in SODIUM CHLORIDE 0.9% 100 ML IV SCH (13:53)
[2020-04-27 16:33] LABS: Hematocrit 27.9 VOL% (35.7-47.0); Hemoglobin 8.5 GM/DL (12.0-16.0)
[2020-04-27] MEDS: sulfaSALAzine 500 MG TABLET PO SCH (21:24)
[2020-04-27 22:46] LABS: Hematocrit 26.4 VOL% (35.7-47.0); Hemoglobin 8.1 GM/DL (12.0-16.0)
[2020-04-28] MEDS: ACETAMINOPHEN 325 MG TABLET PO PRN ×2 (03:21→21:49)
[2020-04-28 06:22] LABS: Hematocrit 27.9 VOL% (35.7-47.0); Hemoglobin 8.1 GM/DL (12.0-16.0)
[2020-04-28 06:41] LABS: Calcium 7.9 MG/DL (8.5-10.1); Osmolality,Calculated 286.8 MOS/KG (273-304); Potassium 4.6 MMOL/L (3.5-5.1)
[2020-04-28 06:45] LABS: Albumin 1.6 G/DL (3.4-5.0); Bilirubin,Total 0.5 MG/DL (0.2-1.0); Calcium 7.9 MG/DL (8.5-10.1); Osmolality,Calculated 286.8 MOS/KG (273-304); Potassium 4.2 MMOL/L (3.5-5.1); Total Protein 5.1 G/DL (5.0-7.5)
[2020-04-28] MEDS: sulfaSALAzine 500 MG TABLET PO SCH (08:47)
[2020-04-28] MEDS: PANTOPRAZOLE INJ 200 MG in SODIUM CHLORIDE 0.9% 250 ML IV SCH (08:47)
[2020-04-28] MEDS: atenoloL 50 MG TABLET PO SCH (08:47)
[2020-04-28] MEDS: ATORVASTATIN 40 MG TABLET PO SCH (08:47)
[2020-04-28] MEDS: AMIODARONE 200 MG TABLET PO SCH (08:47)
[2020-04-28] MEDS: CHLORTHALIDONE 25 MG TABLET PO SCH (08:48)
[2020-04-28] MEDS: FERRIC GLUCONATE COMPLEX 125 MG in SODIUM CHLORIDE 0.9% 100 ML IV SCH (08:49)
[2020-04-28] MEDS ORDERED: methylPREDNISolone SOD SUC 40 MG/1 ML VIAL IV SCH ×2 (21:00)
[2020-04-28] MEDS: MESALAMINE 800 MG TABLET PO SCH (21:49)
[2020-04-28] MEDS: PANTOPRAZOLE 40 MG VIAL IV SCH (21:50)
[2020-04-29 08:13] LABS: Basophils # 0.1 10*3/uL (0.0-0.2); Basophils % 1.4 % (0.0-0.8); Eosinophils # 0.1 10*3/uL (0.0-0.87); Eosinophils % 0.8 % (0.00-10.9); Hematocrit 29.5 VOL% (35.7-47.0); Hemoglobin 8.7 GM/DL (12.0-16.0); Immature Granulocytes % 5.9 %; Immature Granulocytes Absolute 0.45 #; Lymphocytes # 1.6 10*3/uL (1.4-4.0); Lymphocytes % 20.4 % (21.3-54.2); Mean Corpuscular HGB Conc 29.5 GM/DL (32-36); Mean Platelet Volume 9.5 FL (9.6-12.0); Monocytes % 7.9 % (1.7-12.7); NRBC # 0.02 10*3/uL; Neutrophils % 63.6 % (38.7-73.9); Platelet Count 423 T/CUMM (130-400); Red Blood Count 3.04 MC/CUMM (3.8-5.5); Red Cell Distribution Width 16.5 % (9.3-17.3); White Blood Count 7.6 T/CUMM (4-12)
[2020-04-29 08:38] LABS: Calcium 8.1 MG/DL (8.5-10.1); Osmolality,Calculated 284.1 MOS/KG (273-304); Potassium 4.3 MMOL/L (3.5-5.1)
[2020-04-29 08:49] LABS: Eosinophils 1 % (0-10); Hypochromasia 1+; Lymphocytes 18 % (20-55); Microcytosis 1+; Myelocytes 2 %; Polychromasia Slight; Segmented Neutrophils 72 % (50-85); Total Cells Counted 100
[2020-04-29 08:50] LABS: Atypical Lymphocytes Few; Platelet Estimate Increased
[2020-04-29] MEDS: PANTOPRAZOLE 40 MG VIAL IV SCH ×2 (08:50→20:27)
[2020-04-29] MEDS: ATORVASTATIN 40 MG TABLET PO SCH (08:51)
[2020-04-29] MEDS: BISACODYL 5 MG TABLET PO SCH ×2 (08:51→16:20)
[2020-04-29] MEDS: atenoloL 50 MG TABLET PO SCH (08:51)
[2020-04-29] MEDS: AMIODARONE 200 MG TABLET PO SCH (08:52)
[2020-04-29] MEDS: MESALAMINE 800 MG TABLET PO SCH ×4 (08:52→20:27)
[2020-04-29] MEDS: CHLORTHALIDONE 25 MG TABLET PO SCH (08:52)
[2020-04-29] MEDS: FERRIC GLUCONATE COMPLEX 125 MG in SODIUM CHLORIDE 0.9% 100 ML IV SCH (08:53)
[2020-04-29] MEDS ORDERED: POLYETHYLENE GLYCOL POWDER 255 GM BOTTLE PO ONE ×2 (14:00→18:00)
[2020-04-29] MEDS ORDERED: MAGNESIUM CITRATE 300 ML BOTTLE PO ONE (21:00)
[2020-04-30] MEDS: BISACODYL 5 MG TABLET PO SCH (00:28)
[2020-04-30 07:03] LABS: Basophils # 0.1 10*3/uL (0.0-0.2); Basophils % 1.4 % (0.0-0.8); Eosinophils # 0.1 10*3/uL (0.0-0.87); Eosinophils % 0.8 % (0.00-10.9); Hematocrit 29.1 VOL% (35.7-47.0); Hemoglobin 8.6 GM/DL (12.0-16.0); Immature Granulocytes % 8.1 %; Immature Granulocytes Absolute 0.68 #; Lymphocytes # 1.6 10*3/uL (1.4-4.0); Lymphocytes % 18.6 % (21.3-54.2); Mean Corpuscular HGB Conc 29.6 GM/DL (32-36); Mean Corpuscular Volume 97.3 FL (87-102); Mean Platelet Volume 9.4 FL (9.6-12.0); Monocytes % 9.5 % (1.7-12.7); NRBC # 0.05 10*3/uL; Neutrophils % 61.6 % (38.7-73.9); Platelet Count 379 T/CUMM (130-400); Red Blood Count 2.99 MC/CUMM (3.8-5.5); Red Cell Distribution Width 16.3 % (9.3-17.3); White Blood Count 8.4 T/CUMM (4-12)
[2020-04-30 07:11] LABS: Calcium 8.1 MG/DL (8.5-10.1); Osmolality,Calculated 277.5 MOS/KG (273-304); Potassium 3.6 MMOL/L (3.5-5.1)
[2020-04-30 07:30] LABS: Band Neutrophils 3 % (0-10); Eosinophils 2 % (0-10); Hypochromasia 1+; Lymphocytes 27 % (20-55); Microcytosis 1+; Myelocytes 4 %; Nucleated Red Blood Cells 1 (0-5); Segmented Neutrophils 52 % (50-85); Total Cells Counted 100
[2020-04-30 07:31] LABS: Polychromasia Slight
[2020-04-30 07:32] LABS: Atypical Lymphocytes Few
[2020-04-30] MEDS: LACTATED RINGERS 1,000 ML IV SCH (07:45)
[2020-04-30] MEDS: MESALAMINE 800 MG TABLET PO SCH ×4 (08:34→20:47)
[2020-04-30] MEDS: CHLORTHALIDONE 25 MG TABLET PO SCH (08:34)
[2020-04-30] MEDS: AMIODARONE 200 MG TABLET PO SCH (08:34)
[2020-04-30] MEDS: atenoloL 50 MG TABLET PO SCH (08:35)
[2020-04-30] MEDS: ATORVASTATIN 40 MG TABLET PO SCH (08:35)
[2020-04-30] MEDS: PANTOPRAZOLE 40 MG VIAL IV SCH ×2 (08:35→20:45)
[2020-04-30] MEDS ORDERED: LIDOCAINE 2% 5 ML VIAL ONE (09:27)
[2020-04-30] MEDS ORDERED: ETOMIDATE 20 MG/10 ML VIAL IV ONE (09:27)
[2020-04-30] MEDS ORDERED: propofoL 200 MG/20 ML VIAL IV ONE (09:44)
[2020-04-30] MEDS ORDERED: PHENYLEPHRINE 1 MG/10 ML SYRINGE IV ONE (10:04)
[2020-04-30] MEDS: FERRIC GLUCONATE COMPLEX 125 MG in SODIUM CHLORIDE 0.9% 100 ML IV SCH (11:23)
[2020-05-01 04:28] LABS: Basophils # 0.1 10*3/uL (0.0-0.2); Basophils % 1.4 % (0.0-0.8); Eosinophils # 0.1 10*3/uL (0.0-0.87); Eosinophils % 0.6 % (0.00-10.9); Hematocrit 29.1 VOL% (35.7-47.0); Hemoglobin 8.7 GM/DL (12.0-16.0); Immature Granulocytes % 7.8 %; Immature Granulocytes Absolute 0.68 #; Lymphocytes # 1.6 10*3/uL (1.4-4.0); Lymphocytes % 18.1 % (21.3-54.2); Mean Corpuscular HGB Conc 29.9 GM/DL (32-36); Mean Corpuscular Volume 96.7 FL (87-102); Mean Platelet Volume 9.4 FL (9.6-12.0); Monocytes % 7.8 % (1.7-12.7); NRBC # 0.04 10*3/uL; Neutrophils % 64.3 % (38.7-73.9); Platelet Count 371 T/CUMM (130-400); Red Blood Count 3.01 MC/CUMM (3.8-5.5); White Blood Count 8.7 T/CUMM (4-12)
[2020-05-01 04:59] LABS: Albumin 1.6 G/DL (3.4-5.0); Band Neutrophils 2 % (0-10); Bilirubin,Total 0.9 MG/DL (0.2-1.0); Eosinophils 3 % (0-10); Hypochromasia 1+; Lymphocytes 13 % (20-55); Microcytosis 1+; Myelocytes 6 %; Osmolality,Calculated 281.1 MOS/KG (273-304); Polychromasia Slight; Potassium 3.8 MMOL/L (3.5-5.1); Promyelocytes 1 %; Segmented Neutrophils 73 % (50-85); Total Cells Counted 100; Total Protein 4.8 G/DL (5.0-7.5)
[2020-05-01 05:00] LABS: Platelet Estimate Normal
[2020-05-01] MEDS: MESALAMINE 800 MG TABLET PO SCH ×4 (08:31→22:28)
[2020-05-01] MEDS: ATORVASTATIN 40 MG TABLET PO SCH (08:31)
[2020-05-01] MEDS: FERRIC GLUCONATE COMPLEX 125 MG in SODIUM CHLORIDE 0.9% 100 ML IV SCH (08:32)
[2020-05-01] MEDS: atenoloL 50 MG TABLET PO SCH (08:32)
[2020-05-01] MEDS: CHLORTHALIDONE 25 MG TABLET PO SCH (08:32)
[2020-05-01] MEDS: PANTOPRAZOLE 40 MG VIAL IV SCH (08:32)
[2020-05-01] MEDS: AMIODARONE 200 MG TABLET PO SCH (08:32)
[2020-05-01] MEDS: LACTATED RINGERS 1,000 ML IV SCH (08:42)
[2020-05-01] MEDS: lisinopriL 10 MG TABLET PO SCH (14:39)
[2020-05-01] MEDS: FUROSEMIDE 40 MG TABLET PO SCH (16:55)
[2020-05-01] MEDS: PANTOPRAZOLE 40 MG TABLET PO SCH (22:29)
[2020-05-02 06:22] LABS: Basophils # 0.1 10*3/uL (0.0-0.2); Basophils % 1.1 % (0.0-0.8); Eosinophils # 0.1 10*3/uL (0.0-0.87); Eosinophils % 0.6 % (0.00-10.9); Hemoglobin 8.8 GM/DL (12.0-16.0); Immature Granulocytes Absolute 0.53 #; Lymphocytes # 1.7 10*3/uL (1.4-4.0); Lymphocytes % 19.4 % (21.3-54.2); Mean Corpuscular HGB Conc 29.3 GM/DL (32-36); Mean Corpuscular Volume 97.1 FL (87-102); Mean Platelet Volume 9.5 FL (9.6-12.0); Monocytes % 8.4 % (1.7-12.7); NRBC # 0.02 10*3/uL; Neutrophils % 64.5 % (38.7-73.9); Platelet Count 427 T/CUMM (130-400); Red Blood Count 3.09 MC/CUMM (3.8-5.5); Red Cell Distribution Width 17.2 % (9.3-17.3); White Blood Count 8.9 T/CUMM (4-12)
[2020-05-02 06:45] LABS: Eosinophils 3 % (0-10); Lymphocytes 22 % (20-55); Myelocytes 2 %; Segmented Neutrophils 67 % (50-85); Total Cells Counted 100
[2020-05-02 06:46] LABS: Anisocytosis 1+; Atypical Lymphocytes Few; Hypochromasia 1+; Microcytosis 1+; Polychromasia Slight
[2020-05-02 06:57] LABS: Calcium 8.2 MG/DL (8.5-10.1); Potassium 3.4 MMOL/L (3.5-5.1)
[2020-05-02 06:59] LABS: Osmolality,Calculated 279.3 MOS/KG (273-304)
[2020-05-02] MEDS ORDERED: FUROSEMIDE 40 MG TABLET PO SCH (09:00)
[2020-05-02] MEDS: AMIODARONE 200 MG TABLET PO SCH (09:23)
[2020-05-02] MEDS ORDERED: REGADENOSON 0.4 MG/5 ML SYRINGE IV ONE (09:56)
[2020-05-02] MEDS ORDERED: BUPIVACAINE MPF 0.25% 30 ML VIAL ONE ×2 (10:45→11:50)
[2020-05-02] MEDS ORDERED: LIDOCAINE 1% 5 ML VIAL ONE (10:45)
[2020-05-02] MEDS ORDERED: fentaNYL 100 MCG/2 ML VIAL ONE (11:21)
[2020-05-02] MEDS ORDERED: TISSUE ADHESIVE 1 EACH APPLICATOR TOP ONE (11:50)
[2020-05-02] MEDS ORDERED: LIDOCAINE 1%/EPI INJ 20 ML VIAL ONE (11:50)
[2020-05-02] MEDS ORDERED: LACTATED RINGERS 1,000 ML IV SCH (12:00)
[2020-05-02] MEDS ORDERED: ETOMIDATE 40 MG/20 ML VIAL IV ONE (13:23)
[2020-05-02] MEDS ORDERED: ROCURONIUM 50 MG/5 ML VIAL IV ONE ×3 (13:23→15:13)
[2020-05-02] MEDS ORDERED: LIDOCAINE 2% 5 ML VIAL ONE (13:23)
[2020-05-02] MEDS ORDERED: SEVOFLURANE 1 UNIT/15 MINUTE INH ONE ×11 (13:23→15:13)
[2020-05-02] MEDS ORDERED: PHENYLEPHRINE 1 MG/10 ML SYRINGE IV ONE (13:24)
[2020-05-02] MEDS ORDERED: ACETAMINOPHEN 1,000 MG/100 ML VIAL IV ONE (13:24)
[2020-05-02] MEDS ORDERED: SODIUM CHLORIDE 0.9% 1,000 ML IV ONE (13:24)
[2020-05-02] MEDS ORDERED: ONDANSETRON 4 MG/2 ML VIAL ONE (13:24)
[2020-05-02] MEDS ORDERED: DEXAMETHASONE 4 MG/1 ML VIAL ONE (13:24)
[2020-05-02] MEDS ORDERED: KETOROLAC 30 MG/1 ML VIAL ONE (15:13)
[2020-05-02] MEDS ORDERED: NEOSTIGMINE 10 MG/10 ML VIAL ONE ×5 (15:13→15:15)
[2020-05-02] MEDS ORDERED: GLYCOPYRROLATE 0.4 MG/2 ML VIAL ONE (15:13)
[2020-05-02] MEDS ORDERED: SUGAMMADEX 200 MG/2 ML VIAL IV ONE (15:39)
[2020-05-02] MEDS: FUROSEMIDE 40 MG TABLET PO SCH ×2 (15:48→16:00)
[2020-05-02] MEDS: MESALAMINE 800 MG TABLET PO SCH ×4 (15:48→20:23)
[2020-05-02] MEDS: CALCIUM (CARBONATE)/VITAMIN D 600 MG-400 UNIT TABLET PO SCH (15:49)
[2020-05-02] MEDS: FERRIC GLUCONATE COMPLEX 125 MG in SODIUM CHLORIDE 0.9% 100 ML IV SCH (15:50)
[2020-05-02] MEDS: POTASSIUM CHLORIDE 10 MEQ TABLET PO SCH (15:51)
[2020-05-02] MEDS: ATORVASTATIN 40 MG TABLET PO SCH (15:51)
[2020-05-02] MEDS: CHLORTHALIDONE 25 MG TABLET PO SCH (15:51)
[2020-05-02] MEDS: MULTIVITAMIN (OCUVITE) TABLET PO SCH (15:52)
[2020-05-02] MEDS: PANTOPRAZOLE 40 MG TABLET PO SCH ×2 (15:52→20:23)
[2020-05-02] MEDS: lisinopriL 10 MG TABLET PO SCH (15:52)
[2020-05-02] MEDS: POTASSIUM CHLORIDE INJ 10 MEQ in SODIUM CHLORIDE 0.9% 1,000 ML IV SCH (15:53)
[2020-05-02] MEDS: CHOLECALCIFEROL 1,000 UNIT TABLET PO SCH (15:53)
[2020-05-02] MEDS: ASCORBIC ACID 500 MG TABLET PO SCH (15:53)
[2020-05-02] MEDS: atenoloL 50 MG TABLET PO SCH (15:53)
[2020-05-02 16:08] LABS: Bacteria,Urine Many /HPF (Few); Bilirubin,Urine Negative (Negative); Blood, Urine Negative (Negative); Glucose,Urine (UA) Negative (Negative); Ketones,Urine Negative (Negative); Mucus,Urine Occasional /LPF (Occasional); Nitrite,Urine Negative (Negative); Protein,Urine Negative; RBC,Urine 3 /HPF (0-4); Squamous Epithelial Cell,Urine Occasional /HPF (0-10); Urine Appearance CLEAR (Clear); Urine Color Yellow (Yellow); Urine Specific Gravity 1.011 (1.001-1.035); Urine Urobilinogen < 2.0 EU/DL (0.2-1.0); WBC,Urine 81 /HPF (0-6)
[2020-05-02 17:00] LABS: Hemoglobin 9.5 GM/DL (12.0-16.0)
[2020-05-02] MEDS: DEXTROSE 5% LACTATED RINGERS 1,000 ML IV SCH (17:20)
[2020-05-02] MEDS: HYDROmorphone 2 MG/1 ML VIAL IV PRN ×2 (17:25→20:10)
[2020-05-02 23:16] LABS: Hematocrit 32.8 VOL% (35.7-47.0); Hemoglobin 9.8 GM/DL (12.0-16.0)
[2020-05-03] MEDS: DEXTROSE 5% LACTATED RINGERS 1,000 ML IV SCH ×3 (01:55→21:30)
[2020-05-03 04:38] LABS: Basophils # 0.1 10*3/uL (0.0-0.2); Basophils % 0.3 % (0.0-0.8); Hematocrit 30.2 VOL% (35.7-47.0); Hemoglobin 8.8 GM/DL (12.0-16.0); Immature Granulocytes % 1.7 %; Immature Granulocytes Absolute 0.33 #; Lymphocytes # 1.1 10*3/uL (1.4-4.0); Lymphocytes % 5.4 % (21.3-54.2); Mean Corpuscular HGB Conc 29.1 GM/DL (32-36); Mean Corpuscular Volume 98.4 FL (87-102); NRBC # 0.02 10*3/uL; Neutrophils % 87.6 % (38.7-73.9); Platelet Count 388 T/CUMM (130-400); Red Blood Count 3.07 MC/CUMM (3.8-5.5); Red Cell Distribution Width 17.2 % (9.3-17.3); White Blood Count 19.5 T/CUMM (4-12)
[2020-05-03 05:07] LABS: Hypochromasia 1+; Lymphocytes 5 % (20-55); Microcytosis 1+; Nucleated Red Blood Cells 1 (0-5); Platelet Estimate Adequate; Polychromasia Slight; Segmented Neutrophils 92 % (50-85); Total Cells Counted 100
[2020-05-03 05:23] LABS: Calcium 7.8 MG/DL (8.5-10.1); Osmolality,Calculated 283.3 MOS/KG (273-304); Potassium 3.8 MMOL/L (3.5-5.1)
[2020-05-03] MEDS: POTASSIUM CHLORIDE INJ 10 MEQ in SODIUM CHLORIDE 0.9% 1,000 ML IV SCH (08:00)
[2020-05-03] MEDS: FUROSEMIDE 40 MG TABLET PO SCH ×2 (08:00→16:00)
[2020-05-03 08:07] LABS: Hematocrit 29.6 VOL% (35.7-47.0); Hemoglobin 8.6 GM/DL (12.0-16.0)
[2020-05-03] MEDS: atenoloL 50 MG TABLET PO SCH (09:00)
[2020-05-03] MEDS: CHLORTHALIDONE 25 MG TABLET PO SCH (09:00)
[2020-05-03] MEDS: POTASSIUM CHLORIDE 10 MEQ TABLET PO SCH (09:00)
[2020-05-03] MEDS: CALCIUM (CARBONATE)/VITAMIN D 600 MG-400 UNIT TABLET PO SCH (09:00)
[2020-05-03] MEDS: CHOLECALCIFEROL 1,000 UNIT TABLET PO SCH (09:00)
[2020-05-03] MEDS: MULTIVITAMIN (OCUVITE) TABLET PO SCH (09:00)
[2020-05-03] MEDS: ASCORBIC ACID 500 MG TABLET PO SCH (09:00)
[2020-05-03] MEDS: lisinopriL 10 MG TABLET PO SCH (09:00)
[2020-05-03] MEDS: MESALAMINE 800 MG TABLET PO SCH ×4 (10:15→20:13)
[2020-05-03] MEDS: ATORVASTATIN 40 MG TABLET PO SCH (10:15)
[2020-05-03] MEDS: FERRIC GLUCONATE COMPLEX 125 MG in SODIUM CHLORIDE 0.9% 100 ML IV SCH (10:15)
[2020-05-03] MEDS: AMIODARONE 200 MG TABLET PO SCH (10:15)
[2020-05-03] MEDS: PANTOPRAZOLE 40 MG TABLET PO SCH ×2 (10:15→20:14)
[2020-05-03] MEDS: HYDROmorphone 2 MG/1 ML VIAL IV PRN ×3 (11:05→20:01)
[2020-05-04] MEDS: HYDROmorphone 2 MG/1 ML VIAL IV PRN ×8 (01:25→23:31)
[2020-05-04 05:05] LABS: Basophils # 0.1 10*3/uL (0.0-0.2); Basophils % 0.6 % (0.0-0.8); Eosinophils % 0.2 % (0.00-10.9); Hemoglobin 8.4 GM/DL (12.0-16.0); Immature Granulocytes % 2.5 %; Immature Granulocytes Absolute 0.29 #; Lymphocytes # 1.2 10*3/uL (1.4-4.0); Lymphocytes % 10.3 % (21.3-54.2); Mean Corpuscular Volume 101.4 FL (87-102); Mean Platelet Volume 9.6 FL (9.6-12.0); Monocytes % 8.3 % (1.7-12.7); Neutrophils % 78.1 % (38.7-73.9); Platelet Count 425 T/CUMM (130-400); Red Blood Count 2.86 MC/CUMM (3.8-5.5); Red Cell Distribution Width 17.6 % (9.3-17.3); White Blood Count 11.6 T/CUMM (4-12)
[2020-05-04 05:14] LABS: Alanine Aminotransferase 17 U/L (13-56); Albumin 1.5 G/DL (3.4-5.0); Alkaline Phosphatase 160 U/L (45-117); Aspartate Amino Transferase 19 U/L (0-37); Bilirubin,Total < 0.39 MG/DL (0.2-1.0); Blood Urea Nitrogen 16 MG/DL (7-18); Calcium 7.9 MG/DL (8.5-10.1); Carbon Dioxide 26 MMOL/L (21-32); Estimated Glom Filtration Rate 66 ML/MIN; Glucose 115 MG/DL (74-106); Hypochromasia 1+; Microcytosis 1+; Osmolality,Calculated 278.5 MOS/KG (273-304); Platelet Estimate Adequate; Potassium 3.7 MMOL/L (3.5-5.1); Sodium 139 MMOL/L (136-145); Total Protein 4.9 G/DL (5.0-7.5)
[2020-05-04 05:15] LABS: Ovalocytes Slight
[2020-05-04] MEDS: DEXTROSE 5% LACTATED RINGERS 1,000 ML IV SCH ×3 (07:31→22:34)
[2020-05-04] MEDS: MESALAMINE 800 MG TABLET PO SCH ×4 (08:54→20:37)
[2020-05-04] MEDS: FUROSEMIDE 40 MG TABLET PO SCH ×2 (08:54→15:42)
[2020-05-04] MEDS: ATORVASTATIN 40 MG TABLET PO SCH (08:55)
[2020-05-04] MEDS: PANTOPRAZOLE 40 MG TABLET PO SCH ×2 (08:55→20:37)
[2020-05-04] MEDS: FERRIC GLUCONATE COMPLEX 125 MG in SODIUM CHLORIDE 0.9% 100 ML IV SCH (09:25)
[2020-05-04] MEDS: AMIODARONE 200 MG TABLET PO SCH (09:26)
[2020-05-04] MEDS: MULTIVITAMIN (OCUVITE) TABLET PO SCH (09:27)
[2020-05-04] MEDS: lisinopriL 10 MG TABLET PO SCH (09:28)
[2020-05-04] MEDS: atenoloL 50 MG TABLET PO SCH (09:28)
[2020-05-04] MEDS: ASCORBIC ACID 500 MG TABLET PO SCH (09:29)
[2020-05-04] MEDS: CHLORTHALIDONE 25 MG TABLET PO SCH (09:29)
[2020-05-04] MEDS: POTASSIUM CHLORIDE 10 MEQ TABLET PO SCH (09:29)
[2020-05-04] MEDS: CHOLECALCIFEROL 1,000 UNIT TABLET PO SCH (09:31)
[2020-05-04] MEDS: CALCIUM (CARBONATE)/VITAMIN D 600 MG-400 UNIT TABLET PO SCH (09:32)
[2020-05-04] MEDS ORDERED: ALBUTEROL/IPRATROPIUM 3 ML NEB RESP TX PRN (10:16)
[2020-05-05] MEDS: HYDROmorphone 2 MG/1 ML VIAL IV PRN ×5 (01:19→21:34)
[2020-05-05] MEDS: DEXTROSE 5% LACTATED RINGERS 1,000 ML IV SCH ×3 (01:19→18:34)
[2020-05-05 05:53] LABS: Basophils # 0.1 10*3/uL (0.0-0.2); Basophils % 0.4 % (0.0-0.8); Eosinophils # 0.1 10*3/uL (0.0-0.87); Eosinophils % 0.4 % (0.00-10.9); Hematocrit 28.5 VOL% (35.7-47.0); Hemoglobin 8.3 GM/DL (12.0-16.0); Immature Granulocytes Absolute 0.27 #; Lymphocytes # 1.4 10*3/uL (1.4-4.0); Lymphocytes % 10.3 % (21.3-54.2); Mean Corpuscular HGB Conc 29.1 GM/DL (32-36); Mean Corpuscular Volume 98.6 FL (87-102); Mean Platelet Volume 9.6 FL (9.6-12.0); Monocytes % 8.9 % (1.7-12.7); Platelet Count 413 T/CUMM (130-400); Red Blood Count 2.89 MC/CUMM (3.8-5.5); Red Cell Distribution Width 17.2 % (9.3-17.3); White Blood Count 13.4 T/CUMM (4-12)
[2020-05-05] MEDS: MULTIVITAMIN (OCUVITE) TABLET PO SCH (07:59)
[2020-05-05] MEDS: atenoloL 50 MG TABLET PO SCH (07:59)
[2020-05-05] MEDS: ASCORBIC ACID 500 MG TABLET PO SCH (08:00)
[2020-05-05] MEDS: MESALAMINE 800 MG TABLET PO SCH ×4 (08:00→21:30)
[2020-05-05] MEDS: AMIODARONE 200 MG TABLET PO SCH (08:00)
[2020-05-05] MEDS: POTASSIUM CHLORIDE 10 MEQ TABLET PO SCH (08:00)
[2020-05-05] MEDS: lisinopriL 10 MG TABLET PO SCH (08:00)
[2020-05-05] MEDS: CHLORTHALIDONE 25 MG TABLET PO SCH (08:00)
[2020-05-05] MEDS: FUROSEMIDE 40 MG TABLET PO SCH ×2 (08:00→16:35)
[2020-05-05] MEDS: CALCIUM (CARBONATE)/VITAMIN D 600 MG-400 UNIT TABLET PO SCH (08:00)
[2020-05-05] MEDS: CHOLECALCIFEROL 1,000 UNIT TABLET PO SCH (08:00)
[2020-05-05] MEDS: ATORVASTATIN 40 MG TABLET PO SCH (08:00)
[2020-05-05] MEDS: PANTOPRAZOLE 40 MG TABLET PO SCH (08:00)
[2020-05-05] MEDS: FERRIC GLUCONATE COMPLEX 125 MG in SODIUM CHLORIDE 0.9% 100 ML IV SCH (09:03)
[2020-05-06] MEDS: HYDROmorphone 2 MG/1 ML VIAL IV PRN ×6 (01:20→23:12)
[2020-05-06 06:00] LABS: Basophils % 0.3 % (0.0-0.8); Eosinophils % 0.2 % (0.00-10.9); Hematocrit 27.8 VOL% (35.7-47.0); Hemoglobin 8.1 GM/DL (12.0-16.0); Immature Granulocytes % 2.2 %; Immature Granulocytes Absolute 0.29 #; Lymphocytes # 1.3 10*3/uL (1.4-4.0); Lymphocytes % 9.8 % (21.3-54.2); Mean Corpuscular HGB Conc 29.1 GM/DL (32-36); Mean Corpuscular Volume 98.9 FL (87-102); Mean Platelet Volume 9.9 FL (9.6-12.0); Monocytes % 7.1 % (1.7-12.7); Neutrophils % 80.4 % (38.7-73.9); Platelet Count 425 T/CUMM (130-400); Red Blood Count 2.81 MC/CUMM (3.8-5.5); Red Cell Distribution Width 16.9 % (9.3-17.3); White Blood Count 13.2 T/CUMM (4-12)
[2020-05-06 06:20] LABS: % Iron Saturation 12.2 % (18-50)
[2020-05-06 06:23] LABS: Anisocytosis 1+; Hypochromasia 1+; Lymphocytes 8 % (20-55); Microcytosis 1+; Myelocytes 2 %; Ovalocytes Slight; Segmented Neutrophils 84 % (50-85); Total Cells Counted 100
[2020-05-06 06:24] LABS: Platelet Estimate Increased
[2020-05-06 06:41] LABS: Osmolality,Calculated 278.5 MOS/KG (273-304); Potassium 3.2 MMOL/L (3.5-5.1)
[2020-05-06] MEDS ORDERED: MAGNESIUM SULF RIDER 2 GM in PREMIX 1 EACH IV ONE (08:30)
[2020-05-06] MEDS: POTASSIUM CHLORIDE 20 MEQ TABLET PO SCH (08:50)
[2020-05-06] MEDS: atenoloL 50 MG TABLET PO SCH (08:55)
[2020-05-06] MEDS: MESALAMINE 800 MG TABLET PO SCH ×4 (08:56→20:17)
[2020-05-06] MEDS: CALCIUM (CARBONATE)/VITAMIN D 600 MG-400 UNIT TABLET PO SCH (08:56)
[2020-05-06] MEDS: CHOLECALCIFEROL 1,000 UNIT TABLET PO SCH (08:56)
[2020-05-06] MEDS: ASCORBIC ACID 500 MG TABLET PO SCH (08:56)
[2020-05-06] MEDS: MULTIVITAMIN (OCUVITE) TABLET PO SCH (08:57)
[2020-05-06] MEDS: FUROSEMIDE 40 MG TABLET PO SCH ×2 (08:57→16:32)
[2020-05-06] MEDS: AMIODARONE 200 MG TABLET PO SCH (08:57)
[2020-05-06] MEDS: lisinopriL 10 MG TABLET PO SCH (08:58)
[2020-05-06] MEDS: PANTOPRAZOLE 40 MG TABLET PO SCH (08:58)
[2020-05-06] MEDS: CHLORTHALIDONE 25 MG TABLET PO SCH (08:58)
[2020-05-06] MEDS: DEXTROSE 5% LACTATED RINGERS 1,000 ML IV SCH (14:14)
[2020-05-06 18:39] LABS: Bacteria,Urine Few /HPF (Few); Bilirubin,Urine Negative (Negative); Blood, Urine Negative (Negative); Glucose,Urine (UA) Negative (Negative); Hyaline Casts,Urine 14 /LPF (0-3); Ketones,Urine Negative (Negative); Mucus,Urine Occasional /LPF (Occasional); Nitrite,Urine Negative (Negative); Protein,Urine Negative; RBC,Urine 2 /HPF (0-4); Squamous Epithelial Cell,Urine Occasional /HPF (0-10); Urine Appearance CLEAR (Clear); Urine Color Yellow (Yellow); Urine Urobilinogen < 2.0 EU/DL (0.2-1.0); WBC,Urine 35 /HPF (0-6)
[2020-05-06] MEDS: POTASSIUM CHLORIDE 20 MEQ TABLET PO PRN ×2 (20:17→22:28)
[2020-05-06] MEDS: ACETAMINOPHEN 325 MG TABLET PO PRN (23:14)
[2020-05-07] MEDS: POTASSIUM CHLORIDE 20 MEQ TABLET PO PRN ×2 (00:39→02:40)
[2020-05-07 05:47] LABS: Basophils # 0.1 10*3/uL (0.0-0.2); Basophils % 0.6 % (0.0-0.8); Eosinophils # 0.1 10*3/uL (0.0-0.87); Eosinophils % 0.6 % (0.00-10.9); Hematocrit 27.4 VOL% (35.7-47.0); Hemoglobin 8.2 GM/DL (12.0-16.0); Immature Granulocytes % 3.1 %; Immature Granulocytes Absolute 0.38 #; Lymphocytes # 1.1 10*3/uL (1.4-4.0); Lymphocytes % 8.9 % (21.3-54.2); Mean Corpuscular HGB Conc 29.9 GM/DL (32-36); Mean Corpuscular Volume 96.1 FL (87-102); Mean Platelet Volume 9.7 FL (9.6-12.0); Monocytes % 8.7 % (1.7-12.7); Neutrophils % 78.1 % (38.7-73.9); Platelet Count 425 T/CUMM (130-400); Red Blood Count 2.85 MC/CUMM (3.8-5.5); Red Cell Distribution Width 16.7 % (9.3-17.3); White Blood Count 12.3 T/CUMM (4-12)
[2020-05-07] MEDS: HYDROmorphone 2 MG/1 ML VIAL IV PRN ×4 (06:20→20:57)
[2020-05-07 06:47] LABS: Calcium 8.1 MG/DL (8.5-10.1); Osmolality,Calculated 279.5 MOS/KG (273-304); Potassium 4.1 MMOL/L (3.5-5.1)
[2020-05-07] MEDS: MESALAMINE 800 MG TABLET PO SCH ×4 (09:18→20:58)
[2020-05-07] MEDS: MULTIVITAMIN (OCUVITE) TABLET PO SCH (09:18)
[2020-05-07] MEDS: CHLORTHALIDONE 25 MG TABLET PO SCH (09:18)
[2020-05-07] MEDS: atenoloL 50 MG TABLET PO SCH (09:19)
[2020-05-07] MEDS: ASCORBIC ACID 500 MG TABLET PO SCH (09:19)
[2020-05-07] MEDS: lisinopriL 10 MG TABLET PO SCH (09:19)
[2020-05-07] MEDS: POTASSIUM CHLORIDE 20 MEQ TABLET PO SCH (09:19)
[2020-05-07] MEDS: AMIODARONE 200 MG TABLET PO SCH (09:20)
[2020-05-07] MEDS: CALCIUM (CARBONATE)/VITAMIN D 600 MG-400 UNIT TABLET PO SCH (09:20)
[2020-05-07] MEDS: FUROSEMIDE 40 MG TABLET PO SCH ×2 (09:20→16:50)
[2020-05-07] MEDS: PANTOPRAZOLE 40 MG TABLET PO SCH (09:20)
[2020-05-07] MEDS: DEXTROSE 5% LACTATED RINGERS 1,000 ML IV SCH (10:51)
[2020-05-07] MEDS ORDERED: TUBERCULIN SKIN TEST 0.1 ML SYRINGE INTRADERM ONE (12:41)
[2020-05-08 06:18] LABS: Calcium 8.5 MG/DL (8.5-10.1); Osmolality,Calculated 276.8 MOS/KG (273-304); Potassium 3.7 MMOL/L (3.5-5.1)
[2020-05-08 06:58] LABS: Basophils # 0.1 10*3/uL (0.0-0.2); Basophils % 0.6 % (0.0-0.8); Eosinophils % 0.3 % (0.00-10.9); Hemoglobin 8.7 GM/DL (12.0-16.0); Immature Granulocytes % 3.1 %; Immature Granulocytes Absolute 0.38 #; Lymphocytes # 1.3 10*3/uL (1.4-4.0); Lymphocytes % 10.3 % (21.3-54.2); Mean Corpuscular Volume 99.7 FL (87-102); Mean Platelet Volume 9.4 FL (9.6-12.0); Monocytes % 9.2 % (1.7-12.7); Neutrophils % 76.5 % (38.7-73.9); Platelet Count 438 T/CUMM (130-400); Red Blood Count 3.01 MC/CUMM (3.8-5.5); White Blood Count 12.3 T/CUMM (4-12)
[2020-05-08] MEDS: DEXTROSE 5% LACTATED RINGERS 1,000 ML IV SCH (07:40)
[2020-05-08 08:01] LABS: Eosinophils 1 % (0-10); Lymphocytes 11 % (20-55); Platelet Estimate Adequate; Segmented Neutrophils 77 % (50-85); Total Cells Counted 100
[2020-05-08 08:03] LABS: Hypochromasia 1+; Microcytosis 1+
[2020-05-08] MEDS: CHLORTHALIDONE 25 MG TABLET PO SCH (08:29)
[2020-05-08] MEDS: ASCORBIC ACID 500 MG TABLET PO SCH (08:29)
[2020-05-08] MEDS: MULTIVITAMIN (OCUVITE) TABLET PO SCH (08:29)
[2020-05-08] MEDS: HYDROmorphone 2 MG/1 ML VIAL IV PRN ×2 (08:29→12:54)
[2020-05-08] MEDS: FUROSEMIDE 40 MG TABLET PO SCH (08:29)
[2020-05-08] MEDS: POTASSIUM CHLORIDE 20 MEQ TABLET PO SCH (08:30)
[2020-05-08] MEDS: AMIODARONE 200 MG TABLET PO SCH (08:30)
[2020-05-08] MEDS: PANTOPRAZOLE 40 MG TABLET PO SCH (08:30)
[2020-05-08] MEDS: CALCIUM (CARBONATE)/VITAMIN D 600 MG-400 UNIT TABLET PO SCH (08:30)
[2020-05-08] MEDS: atenoloL 50 MG TABLET PO SCH (08:30)
[2020-05-08] MEDS: MESALAMINE 800 MG TABLET PO SCH (08:30)
[2020-05-08] MEDS: lisinopriL 10 MG TABLET PO SCH (08:30)
[2020-05-08] MEDS ORDERED: MAGNESIUM SULF RIDER 2 GM in PREMIX 1 EACH IV ONE (08:45)
[2020-05-08 11:38] VITALS: BP 125/53
== END 2020-05-08 12:55 | DRG 329 ==
LOC: N.ED 01:00 → N.EDINP 01:00 → N.5E 05:25 → SUATTDRO 04-29 09:03 → N.ICU 05-02 16:02 → N.3E 05-04 14:10
PROVIDERS: ADMIT Internal Medicine; ATTEND Surgery

== ENCOUNTER 2020-05-12 16:40 | Inpatient (IN) ==
[2020-05-12] MEDS ORDERED: SODIUM CHLORIDE 0.9% 1,000 ML IV STA (17:14)
[2020-05-12] MEDS ORDERED: PIPERACILLIN/TAZOBACTAM 3,375 MG in SODIUM CHLORIDE 0.9% 100 ML IV STA (17:14)
[2020-05-12 17:18] LABS: Basophils # 0.1 10*3/uL (0.0-0.2); Basophils % 0.5 % (0.0-0.8); Eosinophils % 0.1 % (0.00-10.9); Hematocrit 32.4 VOL% (35.7-47.0); Hemoglobin 9.6 GM/DL (12.0-16.0); Immature Granulocytes % 2.4 %; Immature Granulocytes Absolute 0.32 #; Lymphocytes # 1.4 10*3/uL (1.4-4.0); Lymphocytes % 10.4 % (21.3-54.2); Mean Corpuscular HGB Conc 29.6 GM/DL (32-36); Mean Corpuscular Volume 95.3 FL (87-102); Mean Platelet Volume 9.4 FL (9.6-12.0); Neutrophils % 80.6 % (38.7-73.9); Platelet Count 527 T/CUMM (130-400); Red Cell Distribution Width 17.1 % (9.3-17.3); White Blood Count 13.5 T/CUMM (4-12)
[2020-05-12] MEDS ORDERED: MORPHINE 4 MG/1 ML VIAL ONE (17:46)
[2020-05-12] MEDS ORDERED: ONDANSETRON 4 MG/2 ML VIAL ONE (17:48)
[2020-05-12 17:56] LABS: Albumin 1.7 G/DL (3.4-5.0); Bilirubin,Total 0.6 MG/DL (0.2-1.0); Osmolality,Calculated 279.4 MOS/KG (273-304); Total Protein 5.7 G/DL (6.4-8.2)
[2020-05-12] MEDS ORDERED: POTASSIUM CHLORIDE 20 MEQ TABLET PO STA (18:05)
[2020-05-12] MEDS ORDERED: ONDANSETRON 4 MG/2 ML VIAL IV STA (18:10)
[2020-05-12] MEDS ORDERED: MORPHINE 4 MG/1 ML VIAL IV STA (18:10)
[2020-05-12] MEDS ORDERED: HYDROmorphone 2 MG/1 ML VIAL IV STA (18:42)
[2020-05-12] MEDS ORDERED: ACETAMINOPHEN 325 MG TABLET PO PRN (23:17)
[2020-05-12] MEDS ORDERED: DEXTROSE 50% 25 GM/50 ML VIAL IV PRN (23:17)
[2020-05-12] MEDS ORDERED: GLUCAGON 1 MG VIAL IM PRN (23:17)
[2020-05-12] MEDS ORDERED: POLYETHYLENE GLYCOL POWDER 17 GM PACK PO PRN (23:17)
[2020-05-12] MEDS ORDERED: HYDROmorphone 2 MG/1 ML VIAL IV PRN (23:17)
[2020-05-12] MEDS ORDERED: BISACODYL 5 MG TABLET PO PRN (23:17)
[2020-05-12] MEDS ORDERED: MAGNESIUM HYDROXIDE SUSP 30 ML UDCUP PO PRN (23:17)
[2020-05-12] MEDS ORDERED: ONDANSETRON 4 MG/2 ML VIAL IV PRN (23:17)
[2020-05-12] MEDS: SODIUM CHLORIDE 0.9% 1,000 ML IV SCH (23:59)
[2020-05-13] MEDS: FUROSEMIDE 40 MG TABLET PO SCH ×3 (00:03→21:05)
[2020-05-13] MEDS: INSULIN REGULAR 100 UNIT/ML SUBCUT SCH ×4 (00:13→18:38)
[2020-05-13] MEDS: PIPERACILLIN/TAZOBACTAM 3,375 MG in SODIUM CHLORIDE 0.9% 100 ML IV SCH ×3 (01:27→17:33)
[2020-05-13] MEDS: MUPIROCIN 2% OINT 22 GM TUBE TOP SCH ×4 (02:12→21:07)
[2020-05-13] MEDS: sulfaSALAzine 500 MG TABLET PO SCH ×3 (03:25→21:05)
[2020-05-13 05:51] LABS: Basophils # 0.1 10*3/uL (0.0-0.2); Basophils % 0.8 % (0.0-0.8); Eosinophils % 0.4 % (0.00-10.9); Hematocrit 31.3 VOL% (35.7-47.0); Hemoglobin 9.4 GM/DL (12.0-16.0); Immature Granulocytes % 4.1 %; Immature Granulocytes Absolute 0.41 #; Lymphocytes # 1.4 10*3/uL (1.4-4.0); Lymphocytes % 13.8 % (21.3-54.2); Mean Corpuscular Volume 93.4 FL (87-102); Mean Platelet Volume 9.2 FL (9.6-12.0); Monocytes % 6.4 % (1.7-12.7); Neutrophils % 74.5 % (38.7-73.9); Platelet Count 461 T/CUMM (130-400); Red Blood Count 3.35 MC/CUMM (3.8-5.5); Red Cell Distribution Width 16.9 % (9.3-17.3); White Blood Count 10.1 T/CUMM (4-12)
[2020-05-13 06:16] LABS: Alanine Aminotransferase 21 U/L (13-56); Albumin 1.6 G/DL (3.4-5.0); Alkaline Phosphatase 235 U/L (45-117); Aspartate Amino Transferase 22 U/L (0-37); Bilirubin,Total < 0.39 MG/DL (0.2-1.0); Blood Urea Nitrogen 14 MG/DL (7-18); Calcium 8.2 MG/DL (8.5-10.1); Carbon Dioxide 35 MMOL/L (21-32); Estimated Glom Filtration Rate 76 ML/MIN; Glucose 74 MG/DL (74-106); Osmolality,Calculated 278.4 MOS/KG (273-304); Potassium 3.2 MMOL/L (3.5-5.1); Sodium 140 MMOL/L (136-145); Total Protein 5.3 G/DL (6.4-8.2)
[2020-05-13 06:25] LABS: Hypochromasia 1+; Lymphocytes 22 % (20-55); Microcytosis 1+; Platelet Estimate Adequate; Segmented Neutrophils 73 % (50-85); Total Cells Counted 100
[2020-05-13] MEDS: SODIUM HYPOCHLORITE 0.25% IRRIG 473 ML BOTTLE TOP SCH ×2 (08:24→08:25)
[2020-05-13] MEDS: PANTOPRAZOLE 40 MG VIAL IV SCH (08:25)
[2020-05-13] MEDS: CHLORTHALIDONE 25 MG TABLET PO SCH (08:26)
[2020-05-13] MEDS: ASCORBIC ACID 500 MG TABLET PO SCH (08:26)
[2020-05-13] MEDS: FERROUS SULFATE 325 MG TABLET PO SCH (08:26)
[2020-05-13] MEDS: ATORVASTATIN 40 MG TABLET PO SCH (08:26)
[2020-05-13] MEDS: atenoloL 50 MG TABLET PO SCH (08:26)
[2020-05-13] MEDS: MULTIVITAMIN (OCUVITE) TABLET PO SCH (08:26)
[2020-05-13] MEDS: lisinopriL 10 MG TABLET PO SCH (08:26)
[2020-05-13] MEDS: ASPIRIN CHEW 81 MG TABLET PO SCH (08:26)
[2020-05-13] MEDS: MESALAMINE 0.375 GM PO SCH (08:27)
[2020-05-13] MEDS: AMIODARONE 200 MG TABLET PO SCH (08:27)
[2020-05-13] MEDS: POTASSIUM CHLORIDE 10 MEQ TABLET PO SCH (08:27)
[2020-05-13] MEDS ORDERED: MAGNESIUM SULF RIDER 4 GM in PREMIX 1 EACH IV ONE (09:00)
[2020-05-13] MEDS ORDERED: PANTOPRAZOLE 40 MG TABLET PO SCH (09:00)
[2020-05-13] MEDS: POTASSIUM CHLORIDE 20 MEQ TABLET PO SCH ×2 (09:29→12:28)
[2020-05-13] MEDS: CALCIUM (CARBONATE)/VITAMIN D 500 MG-200 UNIT TABLET PO SCH (09:30)
[2020-05-13] MEDS: SODIUM CHLORIDE 0.9% 1,000 ML IV SCH ×2 (09:32→23:49)
[2020-05-13] MEDS ORDERED: HYDROmorphone 2 MG/1 ML VIAL IV PRN (11:30)
[2020-05-14] MEDS: INSULIN REGULAR 100 UNIT/ML SUBCUT SCH ×4 (00:12→17:10)
[2020-05-14] MEDS: PIPERACILLIN/TAZOBACTAM 3,375 MG in SODIUM CHLORIDE 0.9% 100 ML IV SCH ×3 (01:35→17:20)
[2020-05-14] MEDS: SODIUM CHLORIDE 0.9% 1,000 ML IV SCH ×2 (01:35→16:12)
[2020-05-14 08:42] LABS: Calcium 8.4 MG/DL (8.5-10.1); Osmolality,Calculated 273.7 MOS/KG (273-304); Potassium 3.6 MMOL/L (3.5-5.1)
[2020-05-14 08:44] LABS: Basophils # 0.1 10*3/uL (0.0-0.2); Basophils % 0.8 % (0.0-0.8); Eosinophils % 0.2 % (0.00-10.9); Hematocrit 33.3 VOL% (35.7-47.0); Hemoglobin 10.1 GM/DL (12.0-16.0); Immature Granulocytes % 4.2 %; Immature Granulocytes Absolute 0.37 #; Lymphocytes % 11.9 % (21.3-54.2); Mean Corpuscular HGB Conc 30.3 GM/DL (32-36); Mean Corpuscular Volume 94.6 FL (87-102); Monocytes % 5.4 % (1.7-12.7); Neutrophils % 77.5 % (38.7-73.9); Platelet Count 503 T/CUMM (130-400); Red Blood Count 3.52 MC/CUMM (3.8-5.5); White Blood Count 8.7 T/CUMM (4-12)
[2020-05-14] MEDS: CALCIUM (CARBONATE)/VITAMIN D 500 MG-200 UNIT TABLET PO SCH (09:50)
[2020-05-14] MEDS: ASPIRIN CHEW 81 MG TABLET PO SCH (09:50)
[2020-05-14] MEDS: FUROSEMIDE 40 MG TABLET PO SCH ×2 (09:51→20:29)
[2020-05-14] MEDS: MUPIROCIN 2% OINT 22 GM TUBE TOP SCH ×4 (09:51→20:30)
[2020-05-14] MEDS: FERROUS SULFATE 325 MG TABLET PO SCH (09:51)
[2020-05-14] MEDS: AMIODARONE 200 MG TABLET PO SCH (09:51)
[2020-05-14] MEDS: POTASSIUM CHLORIDE 10 MEQ TABLET PO SCH (09:51)
[2020-05-14] MEDS: CHLORTHALIDONE 25 MG TABLET PO SCH (09:51)
[2020-05-14] MEDS: SODIUM HYPOCHLORITE 0.25% IRRIG 473 ML BOTTLE TOP SCH (09:51)
[2020-05-14] MEDS: sulfaSALAzine 500 MG TABLET PO SCH ×2 (09:51→20:28)
[2020-05-14] MEDS: ATORVASTATIN 40 MG TABLET PO SCH (09:51)
[2020-05-14] MEDS: MESALAMINE 0.375 GM PO SCH (09:52)
[2020-05-14] MEDS: lisinopriL 10 MG TABLET PO SCH (09:52)
[2020-05-14] MEDS: MULTIVITAMIN (OCUVITE) TABLET PO SCH (09:52)
[2020-05-14] MEDS: PANTOPRAZOLE 40 MG VIAL IV SCH (09:52)
[2020-05-14] MEDS: atenoloL 50 MG TABLET PO SCH (09:53)
[2020-05-14] MEDS: ASCORBIC ACID 500 MG TABLET PO SCH (09:53)
[2020-05-15] MEDS: INSULIN REGULAR 100 UNIT/ML SUBCUT SCH ×2 (00:31→05:48)
[2020-05-15] MEDS: SODIUM CHLORIDE 0.9% 1,000 ML IV SCH (02:03)
[2020-05-15] MEDS: PIPERACILLIN/TAZOBACTAM 3,375 MG in SODIUM CHLORIDE 0.9% 100 ML IV SCH ×2 (02:20→09:25)
[2020-05-15 05:40] LABS: Basophils # 0.1 10*3/uL (0.0-0.2); Basophils % 0.8 % (0.0-0.8); Eosinophils % 0.2 % (0.00-10.9); Hemoglobin 9.7 GM/DL (12.0-16.0); Immature Granulocytes % 4.9 %; Immature Granulocytes Absolute 0.46 #; Lymphocytes # 1.4 10*3/uL (1.4-4.0); Lymphocytes % 14.5 % (21.3-54.2); Mean Corpuscular HGB Conc 30.3 GM/DL (32-36); Mean Corpuscular Volume 94.4 FL (87-102); Mean Platelet Volume 9.2 FL (9.6-12.0); Monocytes % 6.7 % (1.7-12.7); Neutrophils % 72.9 % (38.7-73.9); Platelet Count 463 T/CUMM (130-400); Red Blood Count 3.39 MC/CUMM (3.8-5.5); Red Cell Distribution Width 17.1 % (9.3-17.3); White Blood Count 9.4 T/CUMM (4-12)
[2020-05-15 06:06] LABS: Anisocytosis 1+; Hypochromasia 1+; Microcytosis 1+; Platelet Estimate Increased
[2020-05-15 06:08] LABS: Calcium 8.1 MG/DL (8.5-10.1); Osmolality,Calculated 277.5 MOS/KG (273-304); Potassium 3.4 MMOL/L (3.5-5.1)
[2020-05-15 07:40] VITALS: BP 145/66
[2020-05-15] MEDS ORDERED: POTASSIUM CHLORIDE 20 MEQ TABLET PO PRN (07:42)
[2020-05-15] MEDS: lisinopriL 10 MG TABLET PO SCH (09:10)
[2020-05-15] MEDS: atenoloL 50 MG TABLET PO SCH (09:15)
[2020-05-15] MEDS: AMIODARONE 200 MG TABLET PO SCH (09:15)
[2020-05-15] MEDS: FUROSEMIDE 40 MG TABLET PO SCH (09:15)
[2020-05-15] MEDS: CALCIUM (CARBONATE)/VITAMIN D 500 MG-200 UNIT TABLET PO SCH (09:17)
[2020-05-15] MEDS: ASCORBIC ACID 500 MG TABLET PO SCH (09:18)
[2020-05-15] MEDS: FERROUS SULFATE 325 MG TABLET PO SCH (09:19)
[2020-05-15] MEDS: CHLORTHALIDONE 25 MG TABLET PO SCH (09:19)
[2020-05-15] MEDS: sulfaSALAzine 500 MG TABLET PO SCH (09:19)
[2020-05-15] MEDS: PANTOPRAZOLE 40 MG VIAL IV SCH (09:19)
[2020-05-15] MEDS: ATORVASTATIN 40 MG TABLET PO SCH (09:19)
[2020-05-15] MEDS: ASPIRIN CHEW 81 MG TABLET PO SCH (09:20)
[2020-05-15] MEDS: POTASSIUM CHLORIDE 10 MEQ TABLET PO SCH (09:20)
[2020-05-15] MEDS: MULTIVITAMIN (OCUVITE) TABLET PO SCH (09:23)
[2020-05-15] MEDS: MESALAMINE 0.375 GM PO SCH (09:24)
[2020-05-15] MEDS: SODIUM HYPOCHLORITE 0.25% IRRIG 473 ML BOTTLE TOP SCH (09:25)
[2020-05-15] MEDS: MUPIROCIN 2% OINT 22 GM TUBE TOP SCH (09:28)
== END 2020-05-15 11:35 | disposition swing bed (61) | DRG 863 ==
LOC: EDUNIT# → EDBD → N.ED 16:40 → N.EDINP 20:33 → N.3E 22:26 → UNDODISIN 22:35 → N.3E 22:35
PROVIDERS: ADMIT Surgery; ATTEND Surgery

== ENCOUNTER 2020-08-10 17:27 | Inpatient (IN) ==
[2020-08-10 17:53] LABS: Basophils # 0.1 10*3/uL (0.0-0.2); Basophils % 0.6 % (0.0-0.8); Eosinophils # 0.1 10*3/uL (0.0-0.87); Eosinophils % 0.7 % (0.00-10.9); Hematocrit 35.9 VOL% (35.7-47.0); Hemoglobin 11.1 GM/DL (12.0-16.0); Immature Granulocytes % 3.7 %; Immature Granulocytes Absolute 0.36 #; Lymphocytes # 1.6 10*3/uL (1.4-4.0); Mean Corpuscular HGB Conc 30.9 GM/DL (32-36); Mean Corpuscular Volume 93.7 FL (87-102); Mean Platelet Volume 9.3 FL (9.6-12.0); Platelet Count 322 T/CUMM (130-400); Red Blood Count 3.83 MC/CUMM (3.8-5.5); Red Cell Distribution Width 17.2 % (9.3-17.3); White Blood Count 9.7 T/CUMM (4-12)
[2020-08-10 18:01] LABS: PT Patient Result 10.9 SECS (10.5-12.0); Partial Thromboplastin Time 22.7 SECS (23.9-33.8)
[2020-08-10 18:18] LABS: Bilirubin,Urine Negative (Negative); Blood, Urine Negative (Negative); Glucose,Urine (UA) Negative (Negative); Ketones,Urine Negative (Negative); Nitrite,Urine Negative (Negative); Protein,Urine 100 MG/DL; Urine Appearance CLOUDY (Clear); Urine Color Yellow (Yellow); Urine Specific Gravity 1.016 (1.001-1.035); Urine Urobilinogen < 2.0 EU/DL (0.2-1.0)
[2020-08-10 18:23] LABS: Alanine Aminotransferase 30 U/L (13-56); Albumin 2.4 G/DL (3.4-5.0); Alkaline Phosphatase 152 U/L (45-117); Aspartate Amino Transferase 18 U/L (0-37); Bilirubin,Total < 0.39 MG/DL (0.2-1.0); Blood Urea Nitrogen 46 MG/DL (7-18); Calcium 9.2 MG/DL (8.5-10.1); Carbon Dioxide 21 MMOL/L (21-32); Estimated Glom Filtration Rate 49 ML/MIN; Glucose 109 MG/DL (74-106); Osmolality,Calculated 289.5 MOS/KG (273-304); Potassium 4.7 MMOL/L (3.5-5.1); Sodium 139 MMOL/L (136-145); Total Protein 6.8 G/DL (6.4-8.2)
[2020-08-10] MEDS ORDERED: cefTRIAXone 1,000 MG in SODIUM CHLORIDE 0.9% 100 ML IV STA (18:30)
[2020-08-10] MEDS ORDERED: GLUCAGON 1 MG VIAL IM PRN (19:20)
[2020-08-10] MEDS ORDERED: DEXTROSE 50% 25 GM/50 ML VIAL IV PRN (19:20)
[2020-08-10] MEDS ORDERED: ONDANSETRON 4 MG/2 ML VIAL IV PRN (19:20)
[2020-08-10] MEDS ORDERED: CLOPIDOGREL 75 MG TABLET PO STA (19:21)
[2020-08-10] MEDS: ERTAPENEM 1,000 MG in SODIUM CHLORIDE 0.9% 100 ML IV SCH (22:33)
[2020-08-10] MEDS: SODIUM CHLORIDE 0.45% 1,000 ML IV SCH (22:34)
[2020-08-11 04:37] LABS: Basophils # 0.1 10*3/uL (0.0-0.2); Basophils % 0.6 % (0.0-0.8); Eosinophils # 0.1 10*3/uL (0.0-0.87); Eosinophils % 0.8 % (0.00-10.9); Hematocrit 33.3 VOL% (35.7-47.0); Hemoglobin 10.3 GM/DL (12.0-16.0); Lymphocytes # 0.8 10*3/uL (1.4-4.0); Lymphocytes % 8.2 % (21.3-54.2); Mean Corpuscular HGB Conc 30.9 GM/DL (32-36); Mean Corpuscular Volume 93.8 FL (87-102); Mean Platelet Volume 9.2 FL (9.6-12.0); Monocytes % 7.3 % (1.7-12.7); Neutrophils % 80.1 % (38.7-73.9); Platelet Count 301 T/CUMM (130-400); Red Blood Count 3.55 MC/CUMM (3.8-5.5); Red Cell Distribution Width 17.3 % (9.3-17.3); White Blood Count 9.9 T/CUMM (4-12)
[2020-08-11 04:51] LABS: Risk Ratio 3.06; VLDL Cholesterol 21.4 MG/DL
[2020-08-11 04:57] LABS: Calcium 9.2 MG/DL (8.5-10.1); Osmolality,Calculated 286.5 MOS/KG (273-304); Potassium 4.2 MMOL/L (3.5-5.1)
[2020-08-11 04:59] LABS: Band Neutrophils 1 % (0-10); Hypochromasia Slight; Lymphocytes 6 % (20-55); Microcytosis Slight; Platelet Estimate Adequate; Segmented Neutrophils 89 % (50-85); Total Cells Counted 100
[2020-08-11] MEDS ORDERED: CLOPIDOGREL 75 MG TABLET PO SCH (09:00)
[2020-08-11] MEDS: AMIODARONE 200 MG TABLET PO SCH (09:08)
[2020-08-11] MEDS: NYSTATIN POWDER 15 GM BOTTLE TOP SCH ×3 (09:08→21:00)
[2020-08-11] MEDS: ASPIRIN CHEW 81 MG TABLET PO SCH (09:08)
[2020-08-11] MEDS: SODIUM CHLORIDE 0.45% 1,000 ML IV SCH (13:58)
[2020-08-11] MEDS: DESITIN 4OZ/NYSTATIN 15 GRAM MIXTURE PASTE TOP SCH ×2 (16:05→21:00)
[2020-08-11] MEDS: APIXABAN 2.5 MG TABLET PO SCH (23:25)
[2020-08-11] MEDS: ERTAPENEM 1,000 MG in SODIUM CHLORIDE 0.9% 100 ML IV SCH (23:25)
[2020-08-11] MEDS: ATORVASTATIN 80 MG TABLET PO SCH (23:25)
[2020-08-12 06:20] LABS: Basophils # 0.1 10*3/uL (0.0-0.2); Basophils % 0.6 % (0.0-0.8); Eosinophils # 0.2 10*3/uL (0.0-0.87); Eosinophils % 1.6 % (0.00-10.9); Hematocrit 32.7 VOL% (35.7-47.0); Hemoglobin 10.1 GM/DL (12.0-16.0); Immature Granulocytes % 2.5 %; Immature Granulocytes Absolute 0.24 #; Lymphocytes # 1.1 10*3/uL (1.4-4.0); Lymphocytes % 11.5 % (21.3-54.2); Mean Corpuscular HGB Conc 30.9 GM/DL (32-36); Mean Corpuscular Volume 94.2 FL (87-102); Mean Platelet Volume 9.5 FL (9.6-12.0); Monocytes % 10.4 % (1.7-12.7); Neutrophils % 73.4 % (38.7-73.9); Platelet Count 324 T/CUMM (130-400); Red Blood Count 3.47 MC/CUMM (3.8-5.5); Red Cell Distribution Width 17.3 % (9.3-17.3); White Blood Count 9.7 T/CUMM (4-12)
[2020-08-12] MEDS: SODIUM CHLORIDE 0.45% 1,000 ML IV SCH (06:24)
[2020-08-12 06:44] LABS: Atypical Lymphocytes Few; Band Neutrophils 3 % (0-10); Eosinophils 1 % (0-10); Lymphocytes 10 % (20-55); Segmented Neutrophils 78 % (50-85); Total Cells Counted 100
[2020-08-12 06:45] LABS: Calcium 9.1 MG/DL (8.5-10.1); Hypochromasia 1+; Microcytosis 1+; Platelet Estimate Normal; Potassium 3.7 MMOL/L (3.5-5.1)
[2020-08-12] MEDS: lisinopriL 10 MG TABLET PO SCH (08:27)
[2020-08-12] MEDS: ASCORBIC ACID 500 MG TABLET PO SCH (08:27)
[2020-08-12] MEDS: ASPIRIN CHEW 81 MG TABLET PO SCH (08:27)
[2020-08-12] MEDS: APIXABAN 2.5 MG TABLET PO SCH ×2 (08:28→23:26)
[2020-08-12] MEDS: CHLORTHALIDONE 25 MG TABLET PO SCH (08:33)
[2020-08-12] MEDS: FERROUS SULFATE 325 MG TABLET PO SCH ×2 (08:33→23:26)
[2020-08-12] MEDS: CALCIUM (CARBONATE)/VITAMIN D 500 MG-200 UNIT TABLET PO SCH (08:33)
[2020-08-12] MEDS: sulfaSALAzine 500 MG TABLET PO SCH ×2 (08:33→23:24)
[2020-08-12] MEDS: atenoloL 50 MG TABLET PO SCH (08:33)
[2020-08-12] MEDS: AMIODARONE 200 MG TABLET PO SCH (08:35)
[2020-08-12] MEDS: POTASSIUM CHLORIDE 10 MEQ TABLET PO SCH ×2 (08:35→23:24)
[2020-08-12] MEDS ORDERED: MESALAMINE 0.375 GM PO SCH (09:00)
[2020-08-12] MEDS: NYSTATIN POWDER 15 GM BOTTLE TOP SCH ×3 (10:52→23:25)
[2020-08-12] MEDS: DESITIN 4OZ/NYSTATIN 15 GRAM MIXTURE PASTE TOP SCH ×2 (10:52→23:25)
[2020-08-12] MEDS: ATORVASTATIN 80 MG TABLET PO SCH (23:24)
[2020-08-12] MEDS: PANTOPRAZOLE 40 MG TABLET PO SCH (23:25)
[2020-08-12] MEDS ORDERED: MELATONIN 3 MG TABLET PO PRN (23:48)
[2020-08-13] MEDS: ERTAPENEM 1,000 MG in SODIUM CHLORIDE 0.9% 100 ML IV SCH ×2 (00:16→23:42)
[2020-08-13 04:38] LABS: Basophils # 0.1 10*3/uL (0.0-0.2); Basophils % 0.7 % (0.0-0.8); Eosinophils # 0.2 10*3/uL (0.0-0.87); Eosinophils % 2.5 % (0.00-10.9); Hematocrit 31.4 VOL% (35.7-47.0); Hemoglobin 9.9 GM/DL (12.0-16.0); Immature Granulocytes % 2.7 %; Immature Granulocytes Absolute 0.24 #; Lymphocytes # 1.3 10*3/uL (1.4-4.0); Lymphocytes % 14.3 % (21.3-54.2); Mean Corpuscular HGB Conc 31.5 GM/DL (32-36); Mean Corpuscular Volume 92.9 FL (87-102); Mean Platelet Volume 9.2 FL (9.6-12.0); Monocytes % 12.7 % (1.7-12.7); Neutrophils % 67.1 % (38.7-73.9); Platelet Count 319 T/CUMM (130-400); Red Blood Count 3.38 MC/CUMM (3.8-5.5); Red Cell Distribution Width 17.3 % (9.3-17.3); White Blood Count 8.8 T/CUMM (4-12)
[2020-08-13 05:14] LABS: Calcium 9.3 MG/DL (8.5-10.1); Potassium 3.7 MMOL/L (3.5-5.1)
[2020-08-13] MEDS: ASPIRIN CHEW 81 MG TABLET PO SCH (09:55)
[2020-08-13] MEDS: sulfaSALAzine 500 MG TABLET PO SCH ×2 (09:56→21:48)
[2020-08-13] MEDS: FERROUS SULFATE 325 MG TABLET PO SCH ×2 (09:56→21:48)
[2020-08-13] MEDS: AMIODARONE 200 MG TABLET PO SCH (09:57)
[2020-08-13] MEDS: POTASSIUM CHLORIDE 10 MEQ TABLET PO SCH ×2 (09:57→21:48)
[2020-08-13] MEDS: lisinopriL 10 MG TABLET PO SCH (09:58)
[2020-08-13] MEDS: CHLORTHALIDONE 25 MG TABLET PO SCH (09:59)
[2020-08-13] MEDS: DESITIN 4OZ/NYSTATIN 15 GRAM MIXTURE PASTE TOP SCH ×2 (09:59→21:49)
[2020-08-13] MEDS: atenoloL 50 MG TABLET PO SCH (10:00)
[2020-08-13] MEDS: NYSTATIN POWDER 15 GM BOTTLE TOP SCH ×3 (10:00→21:49)
[2020-08-13] MEDS: CALCIUM (CARBONATE)/VITAMIN D 500 MG-200 UNIT TABLET PO SCH (10:01)
[2020-08-13] MEDS: ASCORBIC ACID 500 MG TABLET PO SCH (10:01)
[2020-08-13] MEDS: PANTOPRAZOLE 40 MG TABLET PO SCH (21:48)
[2020-08-13] MEDS: ATORVASTATIN 80 MG TABLET PO SCH (21:48)
[2020-08-14 07:13] LABS: Basophils # 0.1 10*3/uL (0.0-0.2); Basophils % 0.4 % (0.0-0.8); Eosinophils # 0.2 10*3/uL (0.0-0.87); Eosinophils % 1.8 % (0.00-10.9); Hematocrit 33.9 VOL% (35.7-47.0); Hemoglobin 10.2 GM/DL (12.0-16.0); Immature Granulocytes % 2.1 %; Immature Granulocytes Absolute 0.24 #; Lymphocytes # 1.3 10*3/uL (1.4-4.0); Lymphocytes % 10.9 % (21.3-54.2); Mean Corpuscular HGB Conc 30.1 GM/DL (32-36); Mean Corpuscular Volume 97.1 FL (87-102); Mean Platelet Volume 9.2 FL (9.6-12.0); Monocytes % 9.5 % (1.7-12.7); Neutrophils % 75.3 % (38.7-73.9); Platelet Count 332 T/CUMM (130-400); Red Blood Count 3.49 MC/CUMM (3.8-5.5); Red Cell Distribution Width 17.4 % (9.3-17.3); White Blood Count 11.5 T/CUMM (4-12)
[2020-08-14 07:44] LABS: Calcium 9.3 MG/DL (8.5-10.1); Potassium 4.7 MMOL/L (3.5-5.1)
[2020-08-14 08:23] VITALS: BP 109/38
[2020-08-14] MEDS: lisinopriL 10 MG TABLET PO SCH (09:39)
[2020-08-14] MEDS: POTASSIUM CHLORIDE 10 MEQ TABLET PO SCH (09:39)
[2020-08-14] MEDS: atenoloL 50 MG TABLET PO SCH (09:39)
[2020-08-14] MEDS: ASPIRIN CHEW 81 MG TABLET PO SCH (09:40)
[2020-08-14] MEDS: sulfaSALAzine 500 MG TABLET PO SCH (09:42)
[2020-08-14] MEDS: AMIODARONE 200 MG TABLET PO SCH (09:42)
[2020-08-14] MEDS: ASCORBIC ACID 500 MG TABLET PO SCH (09:42)
[2020-08-14] MEDS: FERROUS SULFATE 325 MG TABLET PO SCH (09:43)
[2020-08-14] MEDS: NYSTATIN POWDER 15 GM BOTTLE TOP SCH ×2 (09:43→16:02)
[2020-08-14] MEDS: DESITIN 4OZ/NYSTATIN 15 GRAM MIXTURE PASTE TOP SCH (09:44)
[2020-08-14] MEDS: CALCIUM (CARBONATE)/VITAMIN D 500 MG-200 UNIT TABLET PO SCH (09:44)
[2020-08-14] MEDS: ERTAPENEM 1,000 MG in SODIUM CHLORIDE 0.9% 100 ML IV SCH (13:41)
[2020-08-15] MEDS ORDERED: FUROSEMIDE 80 MG TABLET PO SCH (07:12)
[2020-08-15] MEDS ORDERED: CALCIUM (CARBONATE)/VITAMIN D 600 MG-400 UNIT TABLET PO SCH (09:00)
== END 2020-08-14 16:00 | DRG 988 ==
LOC: EDBD → EDUNIT# → N.ED 17:27 → N.EDINP 19:17 → N.ICU 20:11 → N.TELES 08-11 12:26
PROVIDERS: ADMIT Internal Medicine; ATTEND Internal Medicine